=== PATIENT | female | born 1930 | race Caucasian/White ===

== ENCOUNTER 2017-02-22 05:55 | Inpatient (IN) | payer MEDICARE, BC ==
[2017-02-22] VITALS (17 sets, daily range): BP systolic 93–164; BP diastolic 58–96; PULSE 70–128; RESP 16–31; TEMP 97–98.1; O2SAT 93–100
[~2017-02-22] VITALS: Ht 154.9 cm; Wt 45.8 kg
[~2017-02-22 05:55] MED LIST: ATAC32TA PO; CALC12502 PO; LEVO.1 PO
[2017-02-22] MEDS ORDERED: SODIUM CHLORIDE 0.9% FLUSH 10 ML FLUSH IVF PRN (06:15)
[2017-02-22] MEDS ORDERED: RESP: ALBUTEROL 2.5 MG/3 ML NEB (SCH) INH ONE (06:15)
--- NOTE | 2017-02-22 06:15 | PD ---
HPI Chief Complaint: shortness of breath Time Seen by Provider: 06:00 Travel History International Travel<30 days: No Contact w/Intl Traveler<30days: No Traveled to known affect area: No History of Present Illness HPI The patient is a 87-year-old female who presents emergency department for shortness of breath. The patient states she has had intermittent shortness of breath over the last month, however, she awakened approximately 4 AM with significant shortness of breath. According to EMS the patient's O2 saturation on room air was 90% when they arrived. The patient does have a history congestive heart failure, but states she has no history of COPD or pulmonary embolism. She denies being oxygen dependent. The patient states her shortness of breath was constant, improved with O2 via nasal cannula, but did not appear to be affected by lying supine. The patient states she was too tired to get up and ambulate with the shortness of breath started. She denies any chest pain, nausea, vomiting, or abdominal pain. She notes trace edema to left lower extremity, but denies any known history of DVT. The patient does have a history of atrial fibrillation. [facility] Woflf. [facility] Past Medical History Narrative Medical Atrial fibrillation, CHF, hypertension Past Surgical History Narrative Surgical Not contributory Social History Tobacco Use: No Allergies-Medications (Allergen,Severity, Reaction): Coded Allergies: No Known Allergies (Verified , 02/22/17) Reported Meds & Prescriptions Reported Meds & Active Scripts Active Reported Carvedilol 3.125 Mg Tab 3.125 Mg PO BID Eliquis (Apixaban) 2.5 Mg Tab 2.5 Mg PO BID Pravastatin 20 Mg Tab 20 Mg PO DAILY Potassium Chloride ER (Potassium Chloride) 10 Meq Cap 10 Meq PO DAILY Lisinopril 2.5 Mg Tab 2.5 Mg PO DAILY Levothyroxine (Levothyroxine Sodium) 100 Mcg Tab 100 Mcg PO DAILY Lasix (Furosemide) 20 Mg Tab 20 Mg PO DAILY Calcium (Calcium Carbonate) 600 Mg Tab 1 Tab PO DAILY Aspirin 81 (Aspirin) 81 Mg Tabdr 81 Mg PO DAILY Amiodarone (Amiodarone HCl) 200 Mg Tab 200 Mg PO DAILY Review of Systems Except as stated in HPI: all other systems reviewed are Neg General / Constitutional: Positive: Chills, No: Fever HENT: No: Lightheadedness Cardiovascular: Positive: Diaphoresis, No: Chest Pain or Discomfort Respiratory: Positive: Cough, Shortness of Breath Gastrointestinal: No: Nausea, Vomiting, Abdominal Pain Musculoskeletal: Positive: Weakness, Edema (trace edema to left ankle) Physical Exam Narrative GENERAL: Awake, alert, nontoxic-appearing 87-year-old female who appears her stated age and is in mild respiratory distress. SKIN: Focused skin assessment warm, diaphoretic over the backside. HEAD: Atraumatic. Normocephalic. EYES: Pupils equal and round. No scleral icterus. No injection or drainage. ENT: No nasal bleeding or discharge. Mucous membranes pink and moist. NECK: Trachea midline. No JVD. CARDIOVASCULAR: Irregularly irregular with a heart rate in the 90s. RESPIRATORY: Mild tachypnea with a respiratory rate of 22. Crackles in the bases bilaterally. GASTROINTESTINAL: Abdomen soft, non-tender, nondistended. No rebound tenderness. MUSCULOSKELETAL: No obvious deformities. No clubbing. No cyanosis. Trace edema to left lower extremity. NEUROLOGICAL: Awake and alert. No obvious cranial nerve deficits. Motor grossly within normal limits. Normal speech. PSYCHIATRIC: Appropriate mood and affect; insight and judgment normal. Data Data Last Documented VS Vital Signs Date Time Temp Pulse Resp B/P Pulse Ox O2 Delivery O2 Flow Rate FiO2 02/22/17 06:19 97.4 02/22/17 06:10 96 Nasal Cannula 3 02/22/17 06:00 107 20 132/65 Orders Complete Blood Count With Diff (02/22/17 06:10) Comprehensive Metabolic Panel (02/22/17 06:10) B-Type Natriuretic Peptide (02/22/17 06:10) Act Partial Throm Time (Ptt) (02/22/17 06:10) Prothrombin Time / Inr (Pt) (02/22/17 06:10) Magnesium (Mg) (02/22/17 06:10) Ckmb (Isoenzyme) Profile (02/22/17 06:10) Troponin I (02/22/17 06:10) Iv Access Insert/Monitor (02/22/17 06:10) Electrocardiogram (02/22/17 06:10) Ecg Monitoring (02/22/17 06:10) Oximetry (02/22/17 06:10) Oxygen Administration (02/22/17 06:10) Chest, Single Ap (02/22/17 06:10) Sodium Chloride 0.9% Flush (Ns Flush) (02/22/17 06:15) Albuterol Neb (Albuterol Neb) (02/22/17 06:15) [facility] [place] Medical Decision Making Medical Screen Exam Complete: Yes Emergency Medical Condition: Yes Medical Record Reviewed: Yes Interpretation(s) EKG reveals atrial fibrillation with a rate of 93. Intraventricular conduction defect noted with QRS 130 ms. RSR prime V6. No old EKGs to compare. Differential Diagnosis Differential diagnosis includes congestive heart failure, pulmonary edema, pleural effusion, pneumonia, bronchitis, acute coronary syndrome, pulmonary embolism. Narrative Course IV was established, labs are drawn and sent, and the patient was placed on cardiac telemetry monitoring and continuous pulse oximetry monitoring. EKG was ordered and interpreted. Chest x-ray was obtained. The patient was administered one albuterol nebulizer. Chest x-ray reveals bilateral lower lobe airspace disease, therefore, patient was covered for healthcare acquired pneumonia with cefepime 2 g intravenously and Zithromax 500 mg intravenously. The patient was signed out to the oncoming physician at 7 AM with laboratory evaluation pending. The patient will require admission. Condition: Stable Mesfin Huerta MD Feb 22, 2017 06:15
[2017-02-22] MEDS ORDERED: APIX2.5T PO (06:17)
[2017-02-22] MEDS ORDERED: CALC600T25 PO (06:17)
[2017-02-22] MEDS ORDERED: LEVO100T5 PO (06:17)
[2017-02-22] MEDS ORDERED: AMIO200T PO (06:17)
[2017-02-22] MEDS ORDERED: FURO1TAB62 PO (06:17)
[2017-02-22] MEDS ORDERED: ASPI-110 PO (06:17)
[2017-02-22] MEDS ORDERED: POTA10CA PO (06:17)
[2017-02-22] MEDS ORDERED: LISI2.5T3 PO (06:17)
[2017-02-22] MEDS ORDERED: CARV3.12 PO (06:17)
[2017-02-22] MEDS ORDERED: PRAV20TA2 PO (06:17)
[2017-02-22] MEDS ORDERED: CEFEPIME INJ 2,000 MG in SODIUM CHLORIDE 0.9% INJ 100 ML IV ONE (06:45)
[2017-02-22] MEDS ORDERED: AZITHROMYCIN INJ 500 MG in SODIUM CHLOR 0.9% 250 ML INJ 250 ML IV ONE (06:45)
--- NOTE | 2017-02-22 06:52 | RADRPT ---
EXAM DATE/TIME: 02/22/2017 06:27 [place] COMPARISON: No previous studies available for comparison. INDICATIONS : Short of breath. MEDICAL HISTORY : None. SURGICAL HISTORY : None. ENCOUNTER: Initial ACUITY: 1 day PAIN SCORE: 0/10 LOCATION: Bilateral chest FINDINGS: Portable AP view of the chest demonstrates normal-sized cardiac silhouette. There are small bibasilar pleural-parenchymal opacities. No pneumothorax is identified. Bones demonstrate no acute finding. CONCLUSION: Small bilateral pleural effusions with associated airspace consolidation and/or atelectasis. Johann Mc MD on February 22, 2017 at 6:50 Board Certified Radiologist. This report was verified electronically.
[2017-02-22 07:01] LABS: APTT (PATIENT) 31.8 SEC (24.3-30.1); INTERNATIONAL NORMALIZED RATIO 1.2 RATIO; PROTHROMBIN TIME - PATIENT 13.8 SEC (9.8-11.6)
[2017-02-22 07:11] LABS: AUTOMATED NEUTROPHIL # 6.5 TH/MM3 (1.8-7.7); BASOPHIL # 0.1 TH/MM3 (0-0.2); BASOPHIL % 0.7 % (0.0-2.0); EOSINOPHIL % 0.3 % (0.0-4.0); HEMATOCRIT 40.8 % (35.0-46.0); HEMO FLAGS DIFF FINAL; LYMPH % 8.9 % (9.0-44.0); LYMPHOCYTE # 0.7 TH/MM3 (1.0-4.8); MEAN CELL VOLUME 89.9 FL (80.0-100.0); MEAN CORPUSCULAR HGB CONC 32.2 % (32.0-36.0); NEUT % 85.1 % (16.0-70.0); PLATELET COUNT 315 TH/MM3 (150-450); RED BLOOD COUNT 4.53 MIL/MM3 (4.00-5.30); RED CELL DISTRIBUTION WIDTH 15.5 % (11.6-17.2); WHITE BLOOD COUNT 7.6 TH/MM3 (4.0-11.0)
[2017-02-22 07:15] LABS: ANION GAP 11 MEQ/L (5-15); AST (GOT) 55 U/L (15-37); BICARBONATE 24.7 MEQ/L (21.0-32.0); BLOOD UREA NITROGEN 25 MG/DL (7-18); CHLORIDE 96 MEQ/L (98-107); GLOMERULAR FILTRATION RATE 34 ML/MIN (>89); MAGNESIUM 2.1 MG/DL (1.5-2.5); POTASSIUM 4.9 MEQ/L (3.5-5.1); SODIUM (NA) 132 MEQ/L (136-145)
[2017-02-22 07:16] LABS: ALT (GPT) 41 U/L (10-53)
--- NOTE | 2017-02-22 07:17 | PD ---
Physical Exam Date Seen by Provider: Feb 22, 2017 Time Seen by Provider: 07:00 Narrative The patient was signed out to me by Dr. Cory Caldera a changes shift. Please see his H&P for initial visit and physical exam. [facility] of [facility] of [facility]. The patient has a history of atrial fibrillation and is on eliquis. Chest x-ray shows what appears to be interstitial disease with probable infiltrates. She didn't previously given antibiotics by Dr. Huerta for [facility] acquired pneumonia. Laboratory tests are pending at this time. Data Data Last Documented VS Vital Signs Date Time Temp Pulse Resp B/P Pulse Ox O2 Delivery O2 Flow Rate FiO2 02/22/17 09:08 98 109/61 96 02/22/17 07:41 18 Nasal Cannula 2 02/22/17 06:19 97.4 Orders Complete Blood Count With Diff (02/22/17 06:10) Comprehensive Metabolic Panel (02/22/17 06:10) B-Type Natriuretic Peptide (02/22/17 06:10) Act Partial Throm Time (Ptt) (02/22/17 06:10) Prothrombin Time / Inr (Pt) (02/22/17 06:10) Magnesium (Mg) (02/22/17 06:10) Ckmb (Isoenzyme) Profile (02/22/17 06:10) Troponin I (02/22/17 06:10) Iv Access Insert/Monitor (02/22/17 06:10) Electrocardiogram (02/22/17 06:10) Ecg Monitoring (02/22/17 06:10) Oximetry (02/22/17 06:10) Oxygen Administration (02/22/17 06:10) Chest, Single Ap (02/22/17 06:10) Sodium Chloride 0.9% Flush (Ns Flush) (02/22/17 06:15) Albuterol Neb (Albuterol Neb) (02/22/17 06:15) Blood Culture (02/22/17 06:40) Lactic Acid (02/22/17 06:40) Cefepime Inj (Maxipime Inj) (02/22/17 06:45) Azithromycin Inj (Zithromax Inj) (02/22/17 06:45) Ondansetron Inj (Zofran Inj) (02/22/17 08:32) Ondansetron Inj (Zofran Inj) (02/22/17 08:45) Bumetanide Inj (Bumex Inj) (02/22/17 08:45) ^ Infusion (02/22/17 ) Dopamine Inj Premix (Dopamine Inj Premix (02/22/17 09:00) Terbutaline Inj (Brethine Inj) (02/22/17 09:00) Echo 2d Comp With Doppler (02/22/17 ) Admit Order (Ed Use Only) (02/22/17 09:09) Labs Laboratory Tests Test 02/22/17 02/22/17 06:30 06:40 White Blood Count 7.6 TH/MM3 Red Blood Count 4.53 MIL/MM3 Hemoglobin 13.1 GM/DL Hematocrit 40.8 % Mean Corpuscular Volume 89.9 FL Mean Corpuscular Hemoglobin 29.0 PG Mean Corpuscular Hemoglobin 32.2 % Concent Red Cell Distribution Width 15.5 % Platelet Count 315 TH/MM3 Mean Platelet Volume 8.2 FL Neutrophils (%) (Auto) 85.1 % Lymphocytes (%) (Auto) 8.9 % Monocytes (%) (Auto) 5.0 % Eosinophils (%) (Auto) 0.3 % Basophils (%) (Auto) 0.7 % Neutrophils # (Auto) 6.5 TH/MM3 Lymphocytes # (Auto) 0.7 TH/MM3 Monocytes # (Auto) 0.4 TH/MM3 Eosinophils # (Auto) 0.0 TH/MM3 Basophils # (Auto) 0.1 TH/MM3 CBC Comment DIFF FINAL Differential Comment Prothrombin Time 13.8 SEC Prothromb Time International 1.2 RATIO Ratio Activated Partial 31.8 SEC Thromboplast Time Sodium Level 132 MEQ/L Potassium Level 4.9 MEQ/L Chloride Level 96 MEQ/L Carbon Dioxide Level 24.7 MEQ/L Anion Gap 11 MEQ/L Blood Urea Nitrogen 25 MG/DL Creatinine 1.45 MG/DL Estimat Glomerular Filtration 34 ML/MIN Rate Random Glucose 146 MG/DL Calcium Level 8.7 MG/DL Magnesium Level 2.1 MG/DL Total Bilirubin 1.0 MG/DL Aspartate Amino Transf 55 U/L (AST/SGOT) Alanine Aminotransferase 41 U/L (ALT/SGPT) Alkaline Phosphatase 82 U/L Total Creatine Kinase 39 U/L Troponin I 0.02 NG/ML B-Type Natriuretic Peptide 1577 PG/ML Total Protein 6.9 GM/DL Albumin 2.6 GM/DL Lactic Acid Level 2.5 mmol/L [facility] Medical Record Reviewed: Yes Supervised Visit with MIRA: No Narrative Course 87 year old female [facility]. The patient has a history of atrial fibrillation. She is on eliquis. The patient' s white count is elevated at 13.6. Chest x-ray shows congestive heart failure as well as probable underlying infiltrate. She's been started on antibiotics prior to me taking over. She did develop an episode of acute hypotension. We initiated dopamine. She guarded received a dose of Bumex, 1 mg by the. Her blood pressure currently is in the 130s systolic. I did discuss the case with Dr. Mckenna Watters, clerical warehouseman. She requested we get a stat echocardiogram. Echocardiogram has been ordered and is pending. Case was also discussed with Dr. Kurt Russ, on-call embedded hardware engineer, who will evaluate the echocardiogram when it is performed. She'll be admitted to the intensive care unit. Critical Care Narrative Aggregate critical care time was 45 minutes. Time to perform other separately billable procedures was not included in the critical care time. My time did not include minutes spent treating any other patients simultaneously or on activities that did not directly contribute to the patient's treatment. The services I provided to this patient were to treat and/or prevent clinically significant deterioration that could result in: I provided critical care services requiring my management, as noted below: Chart data review, documentation time, medication orders and management, vital sign assessments/reviewing monitor data, ordering and reviewing lab tests, ordering and interpreting/reviewing x-rays and diagnostic studies, care of the patient and discussion of the patient with the admitting physicians. Sepsis Criteria SIRS Criteria (2 or more): Heart rate over 90, WBC > 59500, < 4000 or > 10% bands Sepsis Criteria (SIRS+source): Infect source susp/known Severe Sepsis (+one): Hypotension, Lactate >2, Acute Oliguria/Renal Failure Diagnosis Primary Impression: Pneumonia Additional Impressions: Congestive heart failure Acute kidney injury Hypotension Sepsis Admitting Information Admitting Physician Requests: Admit Condition: Stable Rene Nix MD Feb 22, 2017 07:17
[2017-02-22 07:20] LABS: ALKALINE PHOSPHATASE 82 U/L (45-117)
[2017-02-22 07:25] LABS: CREATINE KINASE 39 U/L (26-192)
[2017-02-22] MEDS ORDERED: ONDANSETRON HCL 4 MG/2 ML VIAL ONE (08:32)
[2017-02-22] MEDS ORDERED: BUMETANIDE INJ 1 MG/4 ML VIAL IV PUSH ONE (08:45)
[2017-02-22] MEDS ORDERED: ONDANSETRON HCL 4 MG/2 ML VIAL IV PUSH ONE (08:45)
[2017-02-22] MEDS ORDERED: DOPamine INJ PREMIX 500 ML IV SCH (09:00)
[2017-02-22] MEDS ORDERED: TERBUTALINE INJ 1 MG/ML AMP SQ PRN (09:00)
--- NOTE | 2017-02-22 10:44 | ECHRPT ---
Indication: Paroxysmal atrial fibrillation CONCLUSIONS Normal left ventricular size. Wall thickness is normal. The left ventricular systolic function is severely reduced with an estimated ejection fraction in th e range of 25-30%. There is diffuse global hypokinesis. The left atrial size is slightly dilated. The right atrial size is mildly dilated. Mitral annular calcification is present. [id number] mitral valve regurgitation. Aortic valve sclerosis is present. Mild aortic valve regurgitation. There is moderate tricuspid regurgitation. The pulmonary valve is not well visualized. The inferior vena cava is mildly dilated. There is a trivial pericardial effusion present. A moderate left sided pleural effusion is noted. BP: / HR: Rhythm: Atrial fibrillation Technical Quality:Good FINDINGS LEFT VENTRICLE Normal left ventricular size. Wall thickness is normal. The left ventricular systolic function is severely reduced with an estimated ejection fraction in th e range of 25-30%. There is diffuse global hypokinesis. RIGHT VENTRICLE Normal right ventricular size and systolic function. LEFT ATRIUM The left atrial size is slightly dilated. RIGHT ATRIUM The right atrial size is mildly dilated. ATRIAL SEPTUM Normal atrial septal thickness without atrial level shunting by limited color doppler interrogation. AORTA The aortic root and proximal ascending aorta are normal in size on limited imaging. MITRAL VALVE Mitral annular calcification is present. Jugywtlw-fm-kvshra mitral valve regurgitation. AORTIC VALVE Aortic valve sclerosis is present. Mild aortic valve regurgitation. TRICUSPID VALVE There is moderate tricuspid regurgitation. PULMONARY VALVE The pulmonary valve is not well visualized. VESSELS The inferior vena cava is mildly dilated. PERICARDIUM There is a trivial pericardial effusion present. A moderate left sided pleural effusion is noted. Kurt Russ MD (Electronically Signed) Final Date:22 February 2017 10:44
[2017-02-22] MEDS ORDERED: POTASSIUM CHLORIDE 25 MEQ EFFERVESCENT TAB PO PRN (11:00)
[2017-02-22] MEDS ORDERED: ONDANSETRON HCL 4 MG/2 ML VIAL IV PRN (11:00)
[2017-02-22] MEDS ORDERED: ACETAMINOPHEN 325 MG TAB PO PRN (11:00)
[2017-02-22] MEDS ORDERED: MAGNESIUM SULFATE INJ 2 GM in SODIUM CHLORIDE 0.9% INJ 96 ML IV PRN (11:00)
[2017-02-22] MEDS ORDERED: RESP: ALBUTEROL 2.5 MG/IPRATROPIUM 0.5 MG NEB (PRN) INH (11:00)
[2017-02-22] MEDS ORDERED: LACTULOSE SYRUP 20 GM/30 ML CUP PO PRN (11:00)
[2017-02-22] MEDS ORDERED: MISCELLANEOUS NURSING INFORMATION XX SCH (11:00)
[2017-02-22] MEDS ORDERED: POTASSIUM PHOSPHATE MONOBASIC 500 MG TAB PO/TUBE PRN (11:00)
[2017-02-22] MEDS ORDERED: BISACODYL 10 MG SUPP RECTAL PRN (11:00)
[2017-02-22] MEDS ORDERED: SODIUM CHLORIDE 0.9% FLUSH 10 ML FLUSH IV FLUSH PRN (11:00)
[2017-02-22] MEDS ORDERED: MAGNESIUM HYDROXIDE SUSP 30 ML CUP PO PRN (11:00)
[2017-02-22] MEDS ORDERED: POTASSIUM PHOSPHATE INJ 30 MMOL in SODIUM CHLOR 0.9% 250 ML INJ 250 ML IV PRN (11:00)
[2017-02-22] MEDS ORDERED: SODIUM PHOSPHATE INJ 30 MMOL in SODIUM CHLOR 0.9% 250 ML INJ 240 ML IV PRN (11:00)
[2017-02-22] MEDS ORDERED: CHLORHEXIDINE GLUCONATE 2 % 1 PACK (2 CLOTHS) TOP PRN (11:00)
[2017-02-22] MEDS ORDERED: POTASSIUM PHOSPHATE MONOBASIC 500 MG TAB PO PRN (11:00)
[2017-02-22] MEDS ORDERED: MAGNESIUM SULFATE INJ 4 GM in SODIUM CHLORIDE 0.9% INJ 92 ML IV PRN (11:00)
[2017-02-22] MEDS ORDERED: SENNOSIDES 8.6 MG TAB PO PRN (11:00)
[2017-02-22] MEDS ORDERED: MAGNESIUM OXIDE 400 MG TAB PO PRN (11:00)
[2017-02-22] MEDS ORDERED: POTASSIUM CHLOR 40 MEQ PREMIX 100 ML IV PRN ×2 (11:00)
[2017-02-22] MEDS ORDERED: POTASSIUM CHLOR 20 MEQ PREMIX 100 ML IV PRN ×2 (11:00)
--- NOTE | 2017-02-22 11:17 | HHI.HP ---
[facility] Service Critical Care Medicine Primary Care Physician Salvatore Reddy MD Admission Diagnosis chf, pneumonia, hypotension, Diagnosis: Travel History International Travel<30 Days: No Contact w/Intl Traveler <30 Da: No Traveled to Known Affected Are: No Sepsis Criteria SIRS Criteria (2 or more): Heart rate over 90 Severe Sepsis (+one): Hypotension, Lactate >2 Multiple Organ Dysfunction Syn: Evidence -2 organs failing History of Present Illness The patient is a 87-year-old female who presented to the ED for shortness of breath. Per report, the patient states she has had intermittent shortness of breath over the last month, however, she awakened approximately 4 AM with significant shortness of breath. Per EMS upon arrival, the patient's O2 saturation on room air was 90%. The patient has history congestive heart failure, but states she has no history of COPD or pulmonary embolism. The patient states her shortness of breath was constant, improved with O2 via nasal cannula, but did not appear to be affected by lying supine. The patient states she was too tired to get up and ambulate with the shortness of breath started. She denies any chest pain, nausea, vomiting, or abdominal pain. She notes trace edema to left lower extremity, but denies any known history of DVT. The patient does have a history of atrial fibrillation. The patient's physician of record at the skilled nursing is Dr. Wolff. The patient has been followed by a evp operations at [facility], the symptomatology was reported to begin December 2016. At which point the patient was placed on amiodarone, carvedilol, other medications. Of note upon transfer to [facility] amiodarone PO was discontinued, but she remained on carvedilol and Eliquiss. The patient presented to the ED with a heart rate in the 120s, hypotensive, a BNP greater than 1100. Bumex was given, and sepsis protocol was initiated. A stat echo was performed which showed diffuse hypokinesis with an ejection fraction of 2530 % and moderate to severe mitral regurgitation. The patient was noted to have a moderate left pleural effusion. Critical care medicine was consulted for treatment and management. Upon arrival to the ED the patient was noted to be on dopamine infusion blood pressure by cup on left lower extremity 120/80 HR 120's to 140's . History PFSH Past Medical History Narrative Medical Atrial fibrillation, CHF, hypertension Past Surgical History Narrative Surgical Not contributory Social History Tobacco Use: No Allergies-Medications Allergies-Medications (Allergen,Severity, Reaction): Coded Allergies: No Known Allergies (Verified , 02/22/17) Reported Meds & Prescriptions Reported Meds & Active Scripts Active Reported Carvedilol 3.125 Mg Tab 3.125 Mg PO BID Eliquis (Apixaban) 2.5 Mg Tab 2.5 Mg PO BID Pravastatin 20 Mg Tab 20 Mg PO DAILY Potassium Chloride ER (Potassium Chloride) 10 Meq Cap 10 Meq PO DAILY Lisinopril 2.5 Mg Tab 2.5 Mg PO DAILY Levothyroxine (Levothyroxine Sodium) 100 Mcg Tab 100 Mcg PO DAILY Lasix (Furosemide) 20 Mg Tab 20 Mg PO DAILY Calcium (Calcium Carbonate) 600 Mg Tab 1 Tab PO DAILY Aspirin 81 (Aspirin) 81 Mg Tabdr 81 Mg PO DAILY Amiodarone (Amiodarone HCl) 200 Mg Tab 200 Mg PO DAILY ROS Review of Systems Except as stated in HPI: all other systems reviewed are Neg General / Constitutional: Positive: Chills, No: Fever HENT: No: Lightheadedness Cardiovascular: Positive: Diaphoresis, No: Chest Pain or Discomfort Respiratory: Positive: Cough, Shortness of Breath Gastrointestinal: No: Nausea, Vomiting, Abdominal Pain Musculoskeletal: Positive: Weakness, Edema (trace edema to left ankle) Past Family Social History Allergies: Coded Allergies: No Known Allergies (Verified , 02/22/17) Physical Exam Vital Signs Vital Signs Date Time Temp Pulse Resp B/P Pulse Ox O2 Delivery O2 Flow Rate FiO2 02/22/17 09:38 104 18 121/75 94 4 02/22/17 09:08 98 109/61 96 02/22/17 08:59 97 130/92 97 02/22/17 07:41 93 18 108/70 96 Nasal Cannula 2 02/22/17 07:41 96 18 108/70 96 Nasal Cannula 2 02/22/17 06:19 97.4 02/22/17 06:10 96 Nasal Cannula 3 02/22/17 06:00 107 20 132/65 96 Laboratory Laboratory Tests Test 02/22/17 02/22/17 06:30 06:40 White Blood Count 7.6 Red Blood Count 4.53 Hemoglobin 13.1 Hematocrit 40.8 Mean Corpuscular Volume 89.9 Mean Corpuscular Hemoglobin 29.0 Mean Corpuscular Hemoglobin 32.2 Concent Red Cell Distribution Width 15.5 Platelet Count 315 Mean Platelet Volume 8.2 Neutrophils (%) (Auto) 85.1 Lymphocytes (%) (Auto) 8.9 Monocytes (%) (Auto) 5.0 Eosinophils (%) (Auto) 0.3 Basophils (%) (Auto) 0.7 Neutrophils # (Auto) 6.5 Lymphocytes # (Auto) 0.7 Monocytes # (Auto) 0.4 Eosinophils # (Auto) 0.0 Basophils # (Auto) 0.1 CBC Comment DIFF FINAL Differential Comment Prothrombin Time 13.8 Prothromb Time International 1.2 Ratio Activated Partial 31.8 Thromboplast Time Sodium Level 132 Potassium Level 4.9 Chloride Level 96 Carbon Dioxide Level 24.7 Anion Gap 11 Blood Urea Nitrogen 25 Creatinine 1.45 Estimat Glomerular Filtration 34 Rate Random Glucose 146 Calcium Level 8.7 Magnesium Level 2.1 Total Bilirubin 1.0 Aspartate Amino Transf 55 (AST/SGOT) Alanine Aminotransferase 41 (ALT/SGPT) Alkaline Phosphatase 82 Total Creatine Kinase 39 Troponin I 0.02 B-Type Natriuretic Peptide 1577 Total Protein 6.9 Albumin 2.6 Lactic Acid Level 2.5 Date/Time Procedure Status Source Growth 02/22/17 06:50 Aerobic Blood Culture Received Blood Peripheral Pending 02/22/17 06:50 Anaerobic Blood Culture Received Blood Peripheral Pending Result Diagram: 02/22/1730 02/22/17 0630 Imaging Last Impressions Chest X-Ray 02/22/17 0610 Signed Impressions: Service Date/Time: January 06:27 - CONCLUSION: Small bilateral pleural effusions with associated airspace consolidation and/or atelectasis. Johann Mc MD Septic Shock Reassessment Peripheral Pulses: Weak Right Radial Weak Left Radial Weak Right Dorsalis Pedis Weak Left Dorsalis Pedis Capillary Refill: Brisk Assessment and Plan Assessment and Plan Assessment Congestive heart failure Presumed multilobular pneumonia- hospital-acquired Mitral regurgitation Sepsis Respiratory insufficiency Plan Plan by systems: Neurologic: -GCS 15 -Avoid sedatives -Tylenol 650 mg every 6 hours when necessary for pain Respiratory: -02/22chest x-ray small bilateral bibasilar opacities -02/22Per ECHO moderate left pleural effusion -Consult IR for thoracentesis -O2 via nasal cannula -Bronchodilators every 4 hours PRN for wheezing Cardiovascular: -Telemetry atrial fibrillation with RVR -Currently on dopamine in ED, BNP 1577, troponin 0.02 - Begin amiodarone -Stat echodiffuse global hypokinesis, EF 2530 percent, moderate left pleural effusion, mild aortic regurgitation, moderate tricuspid regurgitation, moderate to severe mitral regurgitation -Continue home med carvedilol -Cardiology consulted appreciate recommendations Renal: -Insert schaeffer -- Strict I/Os FEN/GI: -Clear liquid diet -Gentle hydration normal saline 42/cc/hour -Zofran for nausea -Protonix GI prophylaxis Heme/ID: -Follow-up blood urine and sputum cultures -Obtain Legionella, influenza and pneumococcal cultures -Patient received cefepime and azithromycin in the ED -Continue empiric antibiotics Zosyn and azithromycin -Monitor CBC Endocrine: -Glucose monitoring per ICU protocol, low dose regimen -- SSI Prophylaxis: GI Prophylaxis Zofran DVT Prophylaxis -- SCDs Heparin 5000 twice a day Lines: Peripheral IV's2 . Central line if indicated Dispo: my billing statement This patient remains critically ill with one or more organ systems which are or may become a threat to life. I have spent in excess of 39 minutes discontinuously in the care and management of this patient. This time is exclusive of procedures, and includes, but is not limited to, evaluation of the patient, review of the medical record, discussions with family, consultants, nursing staff, or respiratory therapy, and documentation in the medical record. Code Status Full Discussed Condition With Patient's daughter and , ED ICU and Mckenna Ace MD Feb 22, 2017 11:17
[2017-02-22] MEDS: SODIUM CHLOR 0.9% 1000 ML INJ 1,000 ML IV SCH ×3 (12:24→12:46)
[2017-02-22] MEDS: PANTOPRAZOLE SODIUM 40 MG VIAL IV SCH (12:24)
--- NOTE | 2017-02-22 12:42 | EKG ---
Date Performed: 02/22/2017 Time Performed: 06:22:43 PTAGE: 87 years EKG: ATRIAL FIBRILLATION MARKED LEFT AXIS DEVIATION ANTEROSEPTAL MYOCARDIAL INFARCTION ABNORMAL ECG NO PREVIOUS TRACING DOCTOR: Lawson Sweet Interpretating Date/Time 02/22/2017 12:40:04
[2017-02-22] MEDS: PIPERACIL-TAZO 3.375 GM PREMIX 50 ML IV SCH ×3 (12:45→23:02)
--- NOTE | 2017-02-22 12:55 | MB ---
cc: KATHYA BENITEZ M.D. DATE OF CONSULTATION 02/22/2017 REASON FOR CONSULTATION Congestive heart failure. CHIEF COMPLAINT Shortness of breath. HISTORY OF PRESENT ILLNESS Gabriele Parisi is an 87-year-old woman admitted with hypotension and congestive heart failure. I got some of the history from the chart, from the patient and also from the daughter. In talking to the daughter, the patient has been hospitalized four times with congestive heart failure since Father's Day. She has seen Dr. Lg Schneider at [facility] but only in the hospital, not in his office. She comes in now with several days' complaints of increasing shortness of breath. In the ER she deteriorated and had to be placed on dopamine for blood pressure support. She says she is breathing a little better since she has been admitted. Echo has already been done showing severe cardiomyopathy. The patient denies any chest pain that I can elicit, denies syncope. She is frail, weighing less than 100 pounds and has been residing in a residential. She has a previous history of atrial fibrillation and CHF. She does not smoke cigarettes. MEDICATIONS Her medications prior to admission include - 1. Carvedilol 3.125 p.o. b.i.d. 2. Eliquis 2.5 p.o. b.i.d. 3. Pravastatin 20 mg. 4. Potassium 10 mEq daily. 5. Lisinopril 2.5 mg daily. 6. Levothyroxine 100 mcg daily. 7. Lasix 20 mg p.o. daily. 8. Calcium. 9. Aspirin 81 mg. 10. Amiodarone 200 mg daily. PAST MEDICAL HISTORY Notable for the diagnoses already listed. PAST SURGICAL HISTORY Noncontributory. FAMILY HISTORY Noncontributory. REVIEW OF SYSTEMS She has not had any bleeding. She has had generalized weakness. Remaining review of systems is negative. PHYSICAL EXAMINATION GENERAL: A thin elderly white female, mildly tachypneic. She is alert. VITAL SIGNS: Charted. HEENT EXAM: Unremarkable. NECK: Mildly increased central venous pressure. CHEST: Absent breath sounds at the bases with few rales. CARDIAC: Exam shows normal first and second heart sounds. There is an S3 gallop and a 2/6 mitral regurgitation murmur. ABDOMEN: Soft. EXTREMITIES: 1+ edema. Pedal pulses are diminished. CHEST X-RAY Showing bilateral effusions and CHF. Echo Doppler study interpreted as an LV ejection fraction of 25%, global hypokinesis, biatrial enlargement, moderate to severe mitral regurgitation and moderate tricuspid regurgitation. LABORATORY Elevated BNP of 1577, BUN is 25, creatinine 1.45. Potassium 4.9. Lactic acid is elevated at 2.5. IMPRESSION Acute on chronic systolic CHF, very poor functional status, very poor LV function. Prognosis is poor. RECOMMENDATIONS I talked with the daughter about code status. She needs to talk to the rest of the family. Hospice may be appropriate. The plan right now is for thoracentesis to help with her breathing. We will try to minimize the use of dopamine because it is going to run her heart rate up. Will continue to try to gently diurese her which is difficult in the setting of low blood pressure. I will follow her with you in the hospital. MD MARTHA Conner/SHRUTI /12:21 PM /12:30 PM
[2017-02-22 13:59] LABS: INTERNATIONAL NORMALIZED RATIO 1.3 RATIO
--- NOTE | 2017-02-22 15:02 | RADRPT ---
EXAM DATE/TIME: 02/22/2017 14:41 [facility] COMPARISON: CHEST SINGLE AP, February 22, 2017, 6:27. INDICATIONS : Post thoracentesis. MEDICAL HISTORY : Chronic obstructive pulmonary disease. Congestive heart failure. Afib. SURGICAL HISTORY : None. ENCOUNTER: Subsequent ACUITY: 1 day PAIN SCORE: 0/10 LOCATION: Left chest FINDINGS: Near-complete resolution of left-sided pleural effusion following thoracentesis. No definite pneumoth orax. Small to moderate sized right pleural effusion with associated right lower lobe airspace diseas e. Cardiac mediastinal contours are stable. Remainder of the exam is unchanged. CONCLUSION: 1. Interval resolution of left-sided pleural effusion following thoracentesis without significant pne umothorax. Tahir Dietrich MD on February 22, 2017 at 14:58 Board Certified Radiologist. This report was verified electronically.
--- NOTE | 2017-02-22 15:02 | RADRPT ---
EXAM DATE/TIME: 02/22/2017 13:41 [facility] COMPARISON: No previous studies available for comparison. INDICATIONS : Left pleural effusion. MEDICAL HISTORY : Congestive heart failure. Chronic obstructive pulmonary disease. Afib. Ischemic cardiomyopathy. SURGICAL HISTORY : None. ENCOUNTER: Initial ACUITY: 1 week PAIN SCORE: 0/10 LOCATION: Left chest FLUID: Total volume of 600 cc of clear, red fluid was removed. Fluid was sent to lab for ordered studies. TECHNIQUE: 1. Ultrasound guidance for thoracentesis. 2. Thoracentesis. The risks, benefits, and alternatives to ultrasound guided thoracentesis were explained to the patien t in lay simple terms, including the risk of bleeding and infection. Written and verbal informed con sent was obtained. Appropriate area for thoracentesis was marked under ultrasound guidance with the patient in the uprig ht position. Overlying skin was prepped and draped in the usual sterile fashion and with local anest hetic, a dermatotomy was made with an 11 blade scalpel. A 6 Armenian thoracentesis catheter was placed in the pleural space and fluid was removed. Catheter was then removed and a sterile dressing applie d. There were no immediate complications. The patient tolerated the procedure well and the left the ultrasound suite in stable condition. Chest radiograph is to be obtained. CONCLUSION: Uncomplicated ultrasound guided thoracentesis. Orville Asencio MD on February 22, 2017 at 15:00 Board Certified Radiologist. This report was verified electronically.
[2017-02-22 16:22] LABS: TOTAL PROTEIN,PLEURAL FLUID 2.4 GM/DL
[2017-02-22 16:50] LABS: PLEURAL FLUID LYMPHS 27 %
--- NOTE | 2017-02-22 17:10 | RADRPT ---
EXAM DATE/TIME: 02/22/2017 16:35 [facility] COMPARISON: CHEST SINGLE AP, February 22, 2017, 6:27. INDICATIONS : Pneumothorax. MEDICAL HISTORY : Chronic obstructive pulmonary disease. Congestive heart failure. Afib. SURGICAL HISTORY : None. ENCOUNTER: Subsequent ACUITY: 1 day PAIN SCORE: 0/10 LOCATION: Left chest FINDINGS: There is interval development of a tiny left apical pneumothorax measuring 8 mm. A small right pleur al effusion is stable. The heart is mildly enlarged. Bibasilar patchiness is noted consistent with a telectasis and/or infiltrate. CONCLUSION: 1. Interval development of tiny left apical pneumothorax measuring 8 mm. 2. Small right pleural effusion. 3. Cardiomegaly. 4. Bibasilar patchiness consistent with atelectasis and/or infiltrate. Blanco Cruz MD on February 22, 2017 at 17:03 Board Certified Radiologist. This report was verified electronically.
[2017-02-22 19:28] LABS: MAGNESIUM 2.2 MG/DL (1.5-2.5)
[2017-02-22] MEDS: SODIUM CHLORIDE 0.9% FLUSH 10 ML FLUSH IV FLUSH SCH (21:33)
[2017-02-22] MEDS: DOCUSATE SODIUM 50 MG/SENNA 8.6 MG TAB PO SCH (21:33)
[2017-02-22] MEDS: HEPARIN SODIUM - SQ 10,000 UNITS/ML VIAL SQ SCH (21:34)
[2017-02-23] VITALS (12 sets, daily range): BP systolic 91–112; BP diastolic 50–70; PULSE 73–99; RESP 16–46; TEMP 97.2–98.3; O2SAT 89–100
[2017-02-23] MEDS: CHLORHEXIDINE GLUCONATE 2 % 1 PACK (2 CLOTHS) TOP SCH (04:00)
[2017-02-23] MEDS: AZITHROMYCIN INJ 500 MG in SODIUM CHLOR 0.9% 250 ML INJ 250 ML IV SCH (05:00)
[2017-02-23] MEDS: PIPERACIL-TAZO 3.375 GM PREMIX 50 ML IV SCH ×3 (05:00→17:22)
[2017-02-23 06:09] LABS: AUTOMATED NEUTROPHIL # 8.9 TH/MM3 (1.8-7.7); BASOPHIL # 0.1 TH/MM3 (0-0.2); EOSINOPHIL % 0.2 % (0.0-4.0); HEMATOCRIT 34.9 % (35.0-46.0); HEMO FLAGS DIFF FINAL; LYMPH % 6.6 % (9.0-44.0); LYMPHOCYTE # 0.7 TH/MM3 (1.0-4.8); MEAN CELL VOLUME 89.1 FL (80.0-100.0); MEAN CORPUSCULAR HEMOGLOBIN 28.9 PG (27.0-34.0); MEAN CORPUSCULAR HGB CONC 32.5 % (32.0-36.0); MONO % 6.8 % (0.0-8.0); NEUT % 85.4 % (16.0-70.0); PLATELET COUNT 274 TH/MM3 (150-450); RED BLOOD COUNT 3.91 MIL/MM3 (4.00-5.30); RED CELL DISTRIBUTION WIDTH 15.7 % (11.6-17.2); WHITE BLOOD COUNT 10.5 TH/MM3 (4.0-11.0)
[2017-02-23 07:07] LABS: ALKALINE PHOSPHATASE 103 U/L (45-117); ALT (GPT) 64 U/L (10-53); ANION GAP 13 MEQ/L (5-15); AST (GOT) 70 U/L (15-37); BICARBONATE 21.7 MEQ/L (21.0-32.0); BLOOD UREA NITROGEN 28 MG/DL (7-18); CHLORIDE 101 MEQ/L (98-107); GLOMERULAR FILTRATION RATE 43 ML/MIN (>89); MAGNESIUM 1.9 MG/DL (1.5-2.5); POTASSIUM 3.6 MEQ/L (3.5-5.1); SODIUM (NA) 136 MEQ/L (136-145); TOTAL BILIRUBIN ADULT 0.7 MG/DL (0.2-1.0)
[2017-02-23] MEDS: PANTOPRAZOLE SODIUM 40 MG VIAL IV SCH (09:49)
[2017-02-23] MEDS: SODIUM CHLORIDE 0.9% FLUSH 10 ML FLUSH IV FLUSH SCH ×2 (09:49→21:17)
[2017-02-23] MEDS: DOCUSATE SODIUM 50 MG/SENNA 8.6 MG TAB PO SCH ×2 (09:49→21:16)
[2017-02-23] MEDS: HEPARIN SODIUM - SQ 10,000 UNITS/ML VIAL SQ SCH ×2 (09:49→21:17)
[2017-02-23] MEDS: SODIUM CHLOR 0.9% 1000 ML INJ 1,000 ML IV SCH (10:41)
--- NOTE | 2017-02-23 15:28 | HHI.CCPN ---
Subjective Remarks/Hospital Course The patient is a 87-year-old female who presented to the ED for shortness of breath. Per report, the patient states she has had intermittent shortness of breath over the last month, however, she awakened approximately 4 AM with significant shortness of breath. Per EMS upon arrival, the patient's O2 saturation on room air was 90%. The patient has history congestive heart failure, but states she has no history of COPD or pulmonary embolism. The patient states her shortness of breath was constant, improved with O2 via nasal cannula, but did not appear to be affected by lying supine. The patient states she was too tired to get up and ambulate with the shortness of breath started. She denies any chest pain, nausea, vomiting, or abdominal pain. She notes trace edema to left lower extremity, but denies any known history of DVT. The patient does have a history of atrial fibrillation. The patient's physician of record at the half-way is Dr. Wolff. The patient has been followed by a commissary worker at [facility], the symptomatology was reported to begin December 2016. At which point the patient was placed on amiodarone, carvedilol, other medications. Of note upon transfer to [facility] amiodarone PO was discontinued, but she remained on carvedilol and Eliquiss. The patient presented to the ED with a heart rate in the 120s, hypotensive, a BNP greater than 1100. Bumex was given, and sepsis protocol was initiated. A stat echo was performed which showed diffuse hypokinesis with an ejection fraction of 2530 % and moderate to severe mitral regurgitation. The patient was noted to have a moderate left pleural effusion. Critical care medicine was consulted for treatment and management. Upon arrival to the ED the patient was noted to be on dopamine infusion blood pressure by cup on left lower extremity 120/80 HR 120's to 140's . Subjective: 02/23: No acute issues overnight. The patient underwent left thoracentesis for pleural effusion with approximately 600 cc withdrawn, cultures pending. Cardiology was consulted, appreciate recommendations. Patient was weaned off of dopamine status post thoracentesis yesterday afternoon. Patient is tolerating diet appetite improved. Resolution of respiratory distress. Objective Vital Signs Date Time Temp Pulse Resp B/P Pulse Ox O2 Delivery O2 Flow Rate FiO2 02/23/17 14:00 97 02/23/17 12:00 98.3 39 97/58 96 02/22/17 21:25 Nasal Cannula 3.00 Intake and Output 02/22/17 02/22/17 02/22/17 07:59 15:59 23:59 Intake Total 1112 ml Output Total 775 ml Balance 337 ml Result Diagram: 02/23/17 0507 02/23/17 0507 Imaging Last Impressions Chest X-Ray 02/22/17 0610 Signed Impressions: Service Date/Time: January 06:27 - CONCLUSION: Small bilateral pleural effusions with associated airspace consolidation and/or atelectasis. Johann Mc MD Objective Remarks GENERAL: Well-developed elderly female, was easily conversant in no apparent distress SKIN: Warm and dry. HEAD: Atraumatic. Normocephalic. EYES: Pupils equal and round. No scleral icterus. No injection or drainage. ENT: No nasal bleeding or discharge. Mucous membranes pink and moist. NECK: Trachea midline. No JVD. CARDIOVASCULAR: Normal rate, irregularrhythm. RESPIRATORY: No accessory muscle use. Clear to auscultation. Breath sounds equal bilaterally. GASTROINTESTINAL: Abdomen soft, non-tender, nondistended. No guarding. MUSCULOSKELETAL: Extremities without clubbing, cyanosis, or edema. No obvious deformities. NEUROLOGICAL: Awake and alert. RASS 0. No gross focal/sensory deficits. Follows commands in all 4 extremities. Procedures 02/23 thoracentesis A/P Assessment and Plan Assessment Congestive heart failure Presumed multilobular pneumonia- hospital-acquired Mitral regurgitation Sepsis Respiratory insufficiency-resolved Moderate left pleural effusion-resolved Plan Plan by systems: Neurologic: -GCS 15 -Avoid sedatives -Tylenol 650 mg every 6 hours when necessary for pain Respiratory: -02/22chest x-ray small bilateral bibasilar opacities -02/22Per ECHO moderate left pleural effusion -02/22 IR for thoracentesis-600 cc (left) -O2 via nasal cannula -Bronchodilators every 4 hours PRN for wheezing Cardiovascular: -Telemetry atrial fibrillation with RVR - Begin amiodarone -Stat echodiffuse global hypokinesis, EF 2530% moderate left pleural effusion , mild aortic regurgitation, moderate tricuspid regurgitation, moderate to severe mitral regurgitation -Continue home med carvedilol -Cardiology consulted appreciate recommendations Renal: -D/C schaeffer -- Strict I/Os FEN/GI: -Heart healthy diet with boost supplement -D/C normal saline 42/cc/hour -Zofran for nausea -Protonix GI prophylaxis -Bowel regimen Heme/ID: -Follow-up blood urine and sputum cultures -Obtain Legionella, influenza and pneumococcal cultures -Patient received cefepime and azithromycin in the ED -Continue empiric antibiotics Zosyn and azithromycin -Monitor CBC Endocrine: -Glucose monitoring per ICU protocol, low dose regimen -- SSI Msk: PT evaluation and treat Prophylaxis: GI Prophylaxis Zofran DVT Prophylaxis -- SCDs Heparin 5000 twice a day Lines: Peripheral IV's2 . Central line if indicated Dispo: Level 2 Plan transfer to [place] hospitalist, plan transfer to floor with telemetry. Telephoned daughter and Mr. Parisi updated them on patient's medical status, all questions answered Physician Mckenna Jimenes MD Feb 23, 2017 15:28
--- NOTE | 2017-02-23 17:45 | HHI.PR ---
Addendum to Inpatient Note Additional Information Dr. Schneider is her hassock maker. I have spoken to him and he will F/U and I am signed off. Kurt Russ MD Feb 23, 2017 17:45
--- NOTE | 2017-02-23 18:18 | PD.CARD.PN ---
Subjective Subjective Remarks Eating dinner, denies CP or SOB, feels well, has no idea why she is here Objective Medications Current Medications Medications (Trade) Dose Ordered Sig/Bertin Route Start Time Stop Time Status Last Admin (DOPamine INJ PREMIX) 500 ml @ 4.86 mls/hr TITRATE IV 02/22/17 09:00 02/22/17 09:07 (Brethine Inj) 1 mg UNSCH PRN SQ 02/22/17 09:00 (NS Flush) 2 ml UNSCH PRN IV FLUSH 02/22/17 11:00 (NS Flush) 2 ml BID IV FLUSH 02/22/17 21:00 02/23/17 09:49 (Tylenol) 650 mg Q6H PRN PO 02/22/17 11:00 (Protonix Inj) 40 mg DAILY IV 02/22/17 11:00 02/23/17 09:49 (Zofran Inj) 4 mg Q6H PRN IV 02/22/17 11:00 Miscellaneous Information 1 Q361D XX 02/22/17 11:00 02/22/17 13:15 (Chlorhexidine 2% Cloth) 3 pack Taper DAILY@04 TOP 02/23/17 04:00 02/19/18 03:59 02/23/17 04:00 (Chlorhexidine 2% Cloth) 3 pack UNSCH PRN TOP 02/22/17 11:00 (Kasey-Colace) 1 tab BID PO 02/22/17 21:00 02/23/17 09:49 (Milk Of Magnesia Liq) 30 ml Q12H PRN PO 02/22/17 11:00 (Senokot) 17.2 mg Q12H PRN PO 02/22/17 11:00 (Dulcolax Supp) 10 mg DAILY PRN RECTAL 02/22/17 11:00 Lactulose 30 ml 30 ml DAILY PRN PO 02/22/17 11:00 Piperacillin Sod/ Tazobactam Sod 50 ml @ 100 mls/hr Q6H IV 02/22/17 12:00 02/23/17 17:22 (Zithromax Inj/ NS 250 ml Inj) 250 ml @ 250 mls/hr Q24H IV 02/23/17 06:00 02/23/17 05:00 (Heparin Inj) 5,000 units Q12HR SQ 02/22/17 21:00 02/23/17 09:49 Vital Signs / I&O Vital Signs Date Time Temp Pulse Resp B/P Pulse Ox O2 Delivery O2 Flow Rate FiO2 02/23/17 16:00 98.1 96 26 105/65 93 02/23/17 16:00 92 02/23/17 14:00 97 02/23/17 12:00 97 02/23/17 12:00 98.3 97 39 97/58 96 02/23/17 10:00 95 02/23/17 08:15 95 02/23/17 08:00 98.2 94 42 112/59 89 02/23/17 08:00 99 02/23/17 06:00 95 02/23/17 04:00 90 02/23/17 04:00 98.1 90 28 94/62 100 02/23/17 02:00 90 02/23/17 00:00 98.0 93 46 91/50 98 02/23/17 00:00 97 02/22/17 22:00 93 02/22/17 21:25 97 Nasal Cannula 3.00 02/22/17 20:00 95 02/22/17 20:00 98.0 95 31 104/61 100 I/O 02/22/17 02/22/17 02/22/17 02/23/17 02/23/17 02/23/17 07:00 15:00 23:00 07:00 15:00 23:00 Intake Total 1112 ml 298 ml 900 ml Output Total 775 ml 175 ml 250 ml Balance 337 ml 123 ml 650 ml Intake Oral 480 ml 400 ml IV Total 632 ml 298 ml 500 ml Output Urine Total 775 ml 175 ml 250 ml Physical Exam GENERAL: In NAD, eating dinner SKIN: Warm and dry. HEAD: Normocephalic. EYES: No scleral icterus. No injection or drainage. NECK: Supple, trachea midline. No JVD or lymphadenopathy. CARDIOVASCULAR: Regular rate and rhythm, 2/6 syst murmur at apex, S3 gallop. RESPIRATORY: Breath sounds equal bilaterally. No accessory muscle use. GASTROINTESTINAL: Abdomen soft, non-tender, nondistended. MUSCULOSKELETAL: No cyanosis, trace edema. Laboratory Laboratory Tests Test 02/22/17 02/23/17 18:44 05:07 Phosphorus Level 5.0 MG/DL 4.2 MG/DL Magnesium Level 2.2 MG/DL 1.9 MG/DL Troponin I 0.02 NG/ML White Blood Count 10.5 TH/MM3 Red Blood Count 3.91 MIL/MM3 Hemoglobin 11.3 GM/DL Hematocrit 34.9 % Mean Corpuscular Volume 89.1 FL Mean Corpuscular Hemoglobin 28.9 PG Mean Corpuscular Hemoglobin 32.5 % Concent Red Cell Distribution Width 15.7 % Platelet Count 274 TH/MM3 Mean Platelet Volume 8.3 FL Neutrophils (%) (Auto) 85.4 % Lymphocytes (%) (Auto) 6.6 % Monocytes (%) (Auto) 6.8 % Eosinophils (%) (Auto) 0.2 % Basophils (%) (Auto) 1.0 % Neutrophils # (Auto) 8.9 TH/MM3 Lymphocytes # (Auto) 0.7 TH/MM3 Monocytes # (Auto) 0.7 TH/MM3 Eosinophils # (Auto) 0.0 TH/MM3 Basophils # (Auto) 0.1 TH/MM3 CBC Comment DIFF FINAL Differential Comment Sodium Level 136 MEQ/L Potassium Level 3.6 MEQ/L Chloride Level 101 MEQ/L Carbon Dioxide Level 21.7 MEQ/L Anion Gap 13 MEQ/L Blood Urea Nitrogen 28 MG/DL Creatinine 1.19 MG/DL Estimat Glomerular Filtration 43 ML/MIN Rate Random Glucose 79 MG/DL Calcium Level 7.6 MG/DL Total Bilirubin 0.7 MG/DL Aspartate Amino Transf 70 U/L (AST/SGOT) Alanine Aminotransferase 64 U/L (ALT/SGPT) Alkaline Phosphatase 103 U/L Total Protein 5.7 GM/DL Albumin 2.0 GM/DL Imaging Last Impressions Chest X-Ray 02/22/17 1700 Signed Impressions: Service Date/Time: January 16:35 - CONCLUSION: 1. Interval development of tiny left apical pneumothorax measuring 8 mm. 2. Small right pleural effusion. 3. Cardiomegaly. 4. Bibasilar patchiness consistent with atelectasis and/or infiltrate. Blanco Cruz MD Thoracentesis Ultrasound 02/22/17 0000 Signed Impressions: Service Date/Time: January 13:41 - CONCLUSION: Uncomplicated ultrasound guided thoracentesis. Orville Asencio MD Assessment and Plan Problem List: (1) Congestive heart failure (2) Hypotension (3) Cardiomyopathy (4) Mitral regurgitation (5) Tricuspid regurgitation Assessment and Plan Continue ICU care. Wean dopamine as tolerated. Gentle diuresis closely monitoring renal function. Overall prognosis is poor. Recommend to consider palliative care and hospice. Keny Sellers MD Feb 23, 2017 18:18
[2017-02-24] VITALS (10 sets, daily range): BP systolic 102–148; BP diastolic 66–76; PULSE 62–159; RESP 16–20; TEMP 97.4–97.9; O2SAT 94–98
[2017-02-24] MEDS: PIPERACIL-TAZO 3.375 GM PREMIX 50 ML IV SCH ×4 (00:43→18:26)
[2017-02-24] MEDS: CHLORHEXIDINE GLUCONATE 2 % 1 PACK (2 CLOTHS) TOP SCH (03:21)
[2017-02-24] MEDS: AZITHROMYCIN INJ 500 MG in SODIUM CHLOR 0.9% 250 ML INJ 250 ML IV SCH (05:49)
[2017-02-24] MEDS: PANTOPRAZOLE SODIUM 40 MG VIAL IV SCH (09:28)
[2017-02-24] MEDS: DOCUSATE SODIUM 50 MG/SENNA 8.6 MG TAB PO SCH ×2 (09:29→23:00)
[2017-02-24] MEDS: HEPARIN SODIUM - SQ 10,000 UNITS/ML VIAL SQ SCH (09:29)
[2017-02-24] MEDS: SODIUM CHLORIDE 0.9% FLUSH 10 ML FLUSH IV FLUSH SCH ×2 (09:31→23:00)
[2017-02-24] MEDS: POTASSIUM CHLORIDE 10 MEQ CONTROLLED RELEASE TAB PO SCH (23:00)
[2017-02-24] MEDS: CARVEDILOL 3.125 MG TAB PO SCH (23:00)
[2017-02-24] MEDS: APIXABAN 2.5 MG TABLET PO SCH (23:00)
[2017-02-25] VITALS (8 sets, daily range): BP systolic 107–131; BP diastolic 70–91; PULSE 62–128; RESP 17–18; TEMP 97.2–98.4; O2SAT 95–98
[2017-02-25] MEDS: PIPERACIL-TAZO 3.375 GM PREMIX 50 ML IV SCH ×5 (00:06→23:36)
[2017-02-25] MEDS ORDERED: AMIODARONE INJ 450 MG in D5W (EXCEL BAG) 241 ML IV SCH (00:15)
[2017-02-25] MEDS: CHLORHEXIDINE GLUCONATE 2 % 1 PACK (2 CLOTHS) TOP SCH (03:51)
[2017-02-25] MEDS: AZITHROMYCIN INJ 500 MG in SODIUM CHLOR 0.9% 250 ML INJ 250 ML IV SCH (05:18)
[2017-02-25 08:17] LABS: BICARBONATE 24.1 MEQ/L (21.0-32.0); POTASSIUM 3.6 MEQ/L (3.5-5.1)
[2017-02-25] MEDS: PANTOPRAZOLE SODIUM 40 MG VIAL IV SCH (08:52)
[2017-02-25] MEDS: CARVEDILOL 3.125 MG TAB PO SCH ×2 (08:52→17:05)
[2017-02-25] MEDS: FUROSEMIDE 20 MG TAB PO SCH (08:52)
[2017-02-25] MEDS: APIXABAN 2.5 MG TABLET PO SCH ×2 (08:52→21:59)
[2017-02-25] MEDS: POTASSIUM CHLORIDE 10 MEQ CONTROLLED RELEASE TAB PO SCH ×2 (08:52→21:59)
[2017-02-25] MEDS: SODIUM CHLORIDE 0.9% FLUSH 10 ML FLUSH IV FLUSH SCH ×2 (08:52→21:00)
[2017-02-25] MEDS: DOCUSATE SODIUM 50 MG/SENNA 8.6 MG TAB PO SCH ×2 (08:54→21:59)
[2017-02-25] MEDS: AMIODARONE 200 MG TAB PO SCH (17:05)
[2017-02-25] MEDS: ENALAPRIL MALEATE 2.5 MG TAB PO SCH (18:54)
[2017-02-26] VITALS (12 sets, daily range): BP systolic 121–162; BP diastolic 54–97; PULSE 54–135; RESP 18–24; TEMP 93.7–98.6; O2SAT 93–100
[2017-02-26] MEDS: CHLORHEXIDINE GLUCONATE 2 % 1 PACK (2 CLOTHS) TOP SCH (03:06)
[2017-02-26] MEDS: PIPERACIL-TAZO 3.375 GM PREMIX 50 ML IV SCH (05:06)
[2017-02-26] MEDS: AZITHROMYCIN INJ 500 MG in SODIUM CHLOR 0.9% 250 ML INJ 250 ML IV SCH (05:07)
[2017-02-26 07:52] LABS: BLOOD GAS BASE EXCESS -7.3 mmol/L (-2-2); BLOOD GAS CARBOXYHEMOGLOBIN 1.1 % (0-4); BLOOD GAS HCO3 16 mmol/L (22-26); BLOOD GAS METHEMOGLOBIN 0.6 % (0-2); BLOOD GAS O2 HGB SATURATION 98 % (90-100); BLOOD GAS OXYGEN CONTENT 18.3 Vol % (12.0-20.0); BLOOD GAS PCO2 21 mmHg (38-42); BLOOD GAS PO2 186 mmHg (61-120); BLOOD GAS TOTAL HGB 13.1 G/DL (12.0-16.0); TEMP CORR TO 98.6
[2017-02-26 07:53] LABS: CRITICAL VALUE YES
[2017-02-26 07:54] LABS: DRAW SITE RT RADIAL; LITER FLOW 8 L/M; NUMBER OF ARTERIAL PUNCTURES 1; OXYGEN DEVICE AEROSOL TX; STAT YES; ULNAR PULSE PRESENT
[2017-02-26] MEDS ORDERED: methylPREDNISolone SOD SUCC 125 MG/2 ML VIAL IV PUSH ONE (08:00)
[2017-02-26] MEDS ORDERED: FUROSEMIDE 40 MG/4 ML VIAL ONE (08:18)
--- NOTE | 2017-02-26 08:49 | HHI.FPPN ---
Addendum to progress note ADDENDUM Reason for addendum: Additonal documentation Additional information S: Drs Berta and Sophia responded to [facility] at 0725 hours on 02/26 to room 1415 where an 87 YO female with CHF w/EF 20-25% and PNA was de-satting into the 70s. O: Vital Signs Date Time Temp Pulse Resp B/P Pulse Ox O2 Delivery O2 Flow Rate FiO2 02/26/17 07:46 100 Non-Rebreather 15.00 02/26/17 07:46 100 15.00 02/26/17 04:00 Room Air 02/26/17 04:00 97.4 112 18 128/82 96 02/26/17 00:00 97.3 54 18 129/76 98 02/25/17 22:00 Room Air 02/25/17 21:38 98 21 02/25/17 20:00 97.2 65 18 117/70 96 02/25/17 20:00 94 02/25/17 16:00 97.8 62 18 107/85 98 02/25/17 12:00 97.4 100 17 110/78 98 Physical Exam: GEN: thin and frail woman gasping for breath and moaning HEENT: NCAT CV: irregular rate and rhythm with 2/6 mitral regurgitation murmur CHEST: Increased WOB with accessory muscle use on 10L mask Last Impressions Chest X-Ray 02/22/17 1700 Signed Impressions: Service Date/Time: January 16:35 - CONCLUSION: 1. Interval development of tiny left apical pneumothorax measuring 8 mm. 2. Small right pleural effusion. 3. Cardiomegaly. 4. Bibasilar patchiness consistent with atelectasis and/or infiltrate. Blanco Cruz MD Thoracentesis Ultrasound 02/22/17 0000 Signed Impressions: Service Date/Time: January 13:41 - CONCLUSION: Uncomplicated ultrasound guided thoracentesis. Orville Asencio MD CXR - 02/26 - Bilateral infiltrate R > L suspect for PNA, pulmonary edema and pleural effusion A/P: 87 YO female with CHF EF 25%, PNA, pleural effusion (est 600 cc) and pulmonary edema with hypoxemia and acute respiratory failure with O2 sats in the 70s on 10L mask. - CXR - ABG - Lasix 40 mg IV - Troponins, BMP, CBC - Solumedrol 125 mg IV - Move to CVICU - Consult plaster helper - BiPAP sdw Dr Hampton and Remington Meraz MD R1 Feb 26, 2017 08:48
--- NOTE | 2017-02-26 08:53 | RADRPT ---
EXAM DATE/TIME: 02/26/2017 07:59 [facility] COMPARISON: CHEST SINGLE AP, February 22, 2017, 16:35. INDICATIONS : Short of breath. Respiratory distress. MEDICAL HISTORY : Chronic obstructive pulmonary disease. Congestive heart failure. Atrial fibrilation. Ischemic ca rdiomyopathy. SURGICAL HISTORY : Thoracentesis. ENCOUNTER: Initial ACUITY: 3 days PAIN SCORE: Non-responsive. LOCATION: Bilateral chest FINDINGS: Portable AP view of the chest demonstrates cardiac silhouette size at the upper limits for normal. Th ere are perihilar and lower lung zone interstitial opacities bilaterally with bibasilar pleural-paren chymal opacities. No pneumothorax is visualized. Bones demonstrate no acute finding. CONCLUSION: 1. Moderate-sized bibasilar opacities representing pleural effusions with associated volume loss and or airspace consolidation. A left pleural effusion has increased in size while the right pleural effu alan is stable. 2. Perihilar changes characteristic of pulmonary edema. Johann Mc MD on February 26, 2017 at 8:51 Board Certified Radiologist. This report was verified electronically.
[2017-02-26] MEDS: DOCUSATE SODIUM 50 MG/SENNA 8.6 MG TAB PO SCH ×2 (09:00→20:41)
[2017-02-26] MEDS: FUROSEMIDE 20 MG TAB PO SCH (09:00)
[2017-02-26] MEDS: POTASSIUM CHLORIDE 10 MEQ CONTROLLED RELEASE TAB PO SCH ×2 (09:50→20:41)
[2017-02-26] MEDS: AMIODARONE 200 MG TAB PO SCH (09:50)
[2017-02-26] MEDS: CARVEDILOL 3.125 MG TAB PO SCH ×2 (09:50→20:41)
[2017-02-26] MEDS: SODIUM CHLORIDE 0.9% FLUSH 10 ML FLUSH IV FLUSH SCH ×2 (09:51→20:41)
[2017-02-26] MEDS: PANTOPRAZOLE SODIUM 40 MG VIAL IV SCH (09:51)
--- NOTE | 2017-02-26 10:09 | HHI.CCPN ---
Subjective Remarks/Hospital Course The patient is a 87-year-old female who presented to the ED for shortness of breath. Per report, the patient states she has had intermittent shortness of breath over the last month, however, she awakened approximately 4 AM with significant shortness of breath. Per EMS upon arrival, the patient's O2 saturation on room air was 90%. The patient has history congestive heart failure, but states she has no history of COPD or pulmonary embolism. The patient states her shortness of breath was constant, improved with O2 via nasal cannula, but did not appear to be affected by lying supine. The patient states she was too tired to get up and ambulate with the shortness of breath started. She denies any chest pain, nausea, vomiting, or abdominal pain. She notes trace edema to left lower extremity, but denies any known history of DVT. The patient does have a history of atrial fibrillation. The patient's physician of record at the long term is Dr. Wolff. The patient has been followed by a supervisor dumping at [facility], the symptomatology was reported to begin December 2016. At which point the patient was placed on amiodarone, carvedilol, other medications. Of note upon transfer to [facility] amiodarone PO was discontinued, but she remained on carvedilol and Eliquiss. The patient presented to the ED with a heart rate in the 120s, hypotensive, a BNP greater than 1100. Bumex was given, and sepsis protocol was initiated. A stat echo was performed which showed diffuse hypokinesis with an ejection fraction of 2530 % and moderate to severe mitral regurgitation. The patient was noted to have a moderate left pleural effusion. Critical care medicine was consulted for treatment and management. Upon arrival to the ED the patient was noted to be on dopamine infusion blood pressure by cup on left lower extremity 120/80 HR 120's to 140's . Subjective: 02/23: No acute issues overnight. The patient underwent left thoracentesis for pleural effusion with approximately 600 cc withdrawn, cultures pending. Cardiology was consulted, appreciate recommendations. Patient was weaned off of dopamine status post thoracentesis yesterday afternoon. Patient is tolerating diet appetite improved. Resolution of respiratory distress. 02/26: Patient had been transferred to the floor on 02/23. Today rapid response team was called for worsening shortness of breath and patient was noted to have low O2 sats and borderline blood pressure. She was placed on a nonrebreather facemask given to 50 cc of normal saline bolus and transferred to the ICU with reconsult for critical care medicine service. I saw the patient immediately on arrival to the ICU. At that time she was on a nonrebreather facemask and was maintaining her O2 sats around 98%. She was not using accessory muscles of respiration however her pulmonary exam was consistent with fluid overload/CHF. Chest x-ray done on the floor prior to transfer revealed bilateral pleural effusions, pulmonary edema. Lasix 40 mg IV stat was ordered. History was obtained by reviewing records and discussion with family medicine residents who accompanied patient to the ICU. Patient had been followed by cardiology during this admission and they had recommended palliative care/hospice evaluation in view of her advanced cardiomyopathy and severe mitral and tricuspid regurgitation on 2-D echo. Objective Vital Signs Date Time Temp Pulse Resp B/P Pulse Ox O2 Delivery O2 Flow Rate FiO2 02/26/17 08:48 98 Simple Mask 8.00 02/26/17 04:00 97.4 112 18 128/82 02/25/17 21:38 21 Intake and Output 02/25/17 02/25/17 02/26/17 08:00 16:00 00:00 Intake Total 240 ml 380 ml 240 ml Output Total 0 ml Balance 240 ml 380 ml 240 ml Result Diagram: 02/23/17 0507 02/25/17 0536 Other Results Laboratory Tests Test 02/26/17 07:36 Blood Gas Puncture Site RT RADIAL Blood Gas Patient Temperature 98.6 Blood Gas HCO3 16 mmol/L (22-26) Blood Gas Base Excess -7.3 mmol/L (-2-2) Blood Gas Oxygen Saturation 98 % (90-100) Arterial Blood pH 7.48 (7.380-7.420) Arterial Blood Partial 21 mmHg (38-42) Pressure CO2 Arterial Blood Partial 186 mmHg Pressure O2 (61-120) Arterial Blood Oxygen Content 18.3 Vol % (12.0-20.0) Arterial Blood 1.1 % (0-4) Carboxyhemoglobin Arterial Blood Methemoglobin 0.6 % (0-2) Blood Gas Hemoglobin 13.1 G/DL (12.0-16.0) Oxygen Delivery Device AEROSOL TX Blood Gas Liter Flow 8 L/M Imaging Last Impressions Chest X-Ray 02/22/17 0610 Signed Impressions: Service Date/Time: January 06:27 - CONCLUSION: Small bilateral pleural effusions with associated airspace consolidation and/or atelectasis. Johann Mc MD Objective Remarks GENERAL: Well-developed elderly female, laying in ICU bed on 8 L O2 via facemask with some tachypnea, not using accessory muscles of respirations currently. SKIN: Warm and dry. HEAD: Atraumatic. Normocephalic. EYES: Pupils equal and round. No scleral icterus. No injection or drainage. ENT: No nasal bleeding or discharge. Mucous membranes pink and moist. NECK: Trachea midline. No JVD. CARDIOVASCULAR: Normal rate, irregular rhythm. RESPIRATORY: No accessory muscle use. Air entry decreased bilaterally at bases , scattered rhonchi and crackles bilaterally more at bases. GASTROINTESTINAL: Abdomen soft, non-tender, nondistended. No guarding. MUSCULOSKELETAL: Extremities without clubbing, cyanosis, or edema. No obvious deformities. NEUROLOGICAL: Drowsy, easily arousable, disoriented, moves all 4 extremities. Not following commands, tries to keep taking her face mask off. Procedures 02/23 thoracentesis A/P Assessment and Plan Assessment Decompensated acute on chronic systolic Congestive heart failure Possible pneumonia though no leukocytosis or fever currently Mitral regurgitation Acute respiratory failure Bilateral pleural effusion A. fib Dilated cardiomyopathy Severe mitral regurgitation Severe tricuspid regurgitation Plan Plan by systems: Neurologic: -Follow neuro status -Avoid sedatives -Tylenol 650 mg every 6 hours when necessary for pain Respiratory: -02/22chest x-ray small bilateral bibasilar opacities -02/22Per ECHO moderate left pleural effusion -02/22 IR for thoracentesis-600 cc (left) -O2 via nasal cannula, diurese with Lasix. May require BiPAP. Family does not want intubation. -Bronchodilators every 4 hours PRN for wheezing Cardiovascular - Continue amiodarone - echodiffuse global hypokinesis, EF 2530% moderate left pleural effusion, mild aortic regurgitation, moderate tricuspid regurgitation, moderate to severe mitral regurgitation -Continue carvedilol, enalapril -On Lasix 20 mg by mouth daily. Given 40 mg Lasix IV stat on arrival to the ICU with 80 mg IV ordered for 11:30 AM to mobilize fluid -Cardiology consulted appreciate recommendations. Noted recommendation to consider palliative care/hospice. Renal: -Arauz catheterization for accurate intake output in ICU patient receiving diuretics - Diurese with Lasix -- Strict I/Os, monitor and replete electro lites, follow BUN/creatinine. FEN/GI: -Heart healthy diet with boost supplement -Zofran for nausea -Protonix GI prophylaxis -Bowel regimen Heme/ID: -blood urine and sputum cultures negative -Obtain Legionella, influenza and pneumococcal cultures -Patient received cefepime and azithromycin in the ED -Continue empiric antibiotic - azithromycin, Zosyn stopped on 02/26 in view of worsening CHF and high sodium load with Zosyn and low suspicion for pneumonia -Monitor CBC Endocrine: -Glucose monitoring per ICU protocol, low dose regimen -- SSI Msk: PT evaluation and treat Prophylaxis: GI Prophylaxis Zofran DVT Prophylaxis -- SCDs Heparin 5000 twice a day Lines: Peripheral IV's2 . Central line if indicated Telephoned daughter : Miesha Parisi and discussed current clinical status including possibly need for intubation and she was very clear that she and her father would not want any aggressive measures including intubation or CPR and wish to change her CODE STATUS to DNR status. I also asked her if she wanted any further invasive procedures and she was also very clear about not wanting any further invasive procedures at this time. I did discuss option of palliative care and hospice evaluation in view of her advanced cardiomyopathy and valvular disease and she wished to discuss with palliative care service further to assist with deciding goals of therapy. CODE STATUS changed to DNR status at this time per discussion with patient's daughter. Condition remains critical with patient being very high risk for deterioration from advanced cardiomyopathy and decompensated CHF. Time spent on critical care excluding procedures 45 minutes Lawson Cortez MD Feb 26, 2017 10:09
[2017-02-26] MEDS: ENALAPRIL MALEATE 2.5 MG TAB PO SCH (11:16)
[2017-02-26] MEDS: APIXABAN 2.5 MG TABLET PO SCH ×2 (11:16→20:41)
[2017-02-26] MEDS: POTASSIUM CHLOR 20 MEQ PREMIX 100 ML IV SCH ×2 (11:17→17:42)
[2017-02-26] MEDS ORDERED: FUROSEMIDE 100 MG/10 ML VIAL IV PUSH ONE (11:30)
[2017-02-26 11:52] LABS: BASOPHIL % 0.3 % (0.0-2.0); EOSINOPHIL % 0.1 % (0.0-4.0); HEMATOCRIT 39.6 % (35.0-46.0); HEMO FLAGS DIFF FINAL; LYMPH % 4.3 % (9.0-44.0); LYMPHOCYTE # 0.4 TH/MM3 (1.0-4.8); MEAN CELL VOLUME 90.4 FL (80.0-100.0); MEAN CORPUSCULAR HEMOGLOBIN 28.8 PG (27.0-34.0); MEAN CORPUSCULAR HGB CONC 31.9 % (32.0-36.0); MONO % 2.8 % (0.0-8.0); NEUT % 92.5 % (16.0-70.0); PLATELET COUNT 320 TH/MM3 (150-450); RED BLOOD COUNT 4.38 MIL/MM3 (4.00-5.30); RED CELL DISTRIBUTION WIDTH 15.6 % (11.6-17.2); WHITE BLOOD COUNT 9.7 TH/MM3 (4.0-11.0)
[2017-02-26 12:08] LABS: ANION GAP 12 MEQ/L (5-15); BICARBONATE 29.5 MEQ/L (21.0-32.0); BLOOD UREA NITROGEN 20 MG/DL (7-18); CHLORIDE 98 MEQ/L (98-107); GLOMERULAR FILTRATION RATE 41 ML/MIN (>89); POTASSIUM 3.2 MEQ/L (3.5-5.1); SODIUM (NA) 139 MEQ/L (136-145)
--- NOTE | 2017-02-26 16:14 | PD.CARD.PN ---
Subjective Subjective Remarks Episode of severe dyspnea this AM, transferred to the ICU, now feels better and has no recollection of the event, family present Objective Medications Current Medications Medications (Trade) Dose Ordered Sig/Bertin Route Start Time Stop Time Status Last Admin (DOPamine INJ PREMIX) 500 ml @ 4.86 mls/hr TITRATE IV 02/22/17 09:00 02/22/17 09:07 (Brethine Inj) 1 mg UNSCH PRN SQ 02/22/17 09:00 (NS Flush) 2 ml UNSCH PRN IV FLUSH 02/22/17 11:00 (NS Flush) 2 ml BID IV FLUSH 02/22/17 21:00 02/26/17 09:51 (Tylenol) 650 mg Q6H PRN PO 02/22/17 11:00 (Protonix Inj) 40 mg DAILY IV 02/22/17 11:00 02/26/17 09:51 (Zofran Inj) 4 mg Q6H PRN IV 02/22/17 11:00 Miscellaneous Information 1 [id number] XX 02/22/17 11:00 02/22/17 13:15 (Chlorhexidine 2% Cloth) 3 pack Taper DAILY@04 TOP 02/23/17 04:00 02/19/18 03:59 02/23/17 04:00 (Chlorhexidine 2% Cloth) 3 pack UNSCH PRN TOP 02/22/17 11:00 (Kasey-Colace) 1 tab BID PO 02/22/17 21:00 02/25/17 21:59 (Milk Of Magnesia Liq) 30 ml Q12H PRN PO 02/22/17 11:00 (Senokot) 17.2 mg Q12H PRN PO 02/22/17 11:00 (Dulcolax Supp) 10 mg DAILY PRN RECTAL 02/22/17 11:00 Lactulose 30 ml 30 ml DAILY PRN PO 02/22/17 11:00 (Zithromax Inj/ NS 250 ml Inj) 250 ml @ 250 mls/hr Q24H IV 02/23/17 06:00 02/26/17 05:07 (Eliquis) 2.5 mg BID PO 02/24/17 21:00 02/26/17 11:16 (KCl) 10 meq BID PO 02/24/17 21:00 02/26/17 09:50 (Coreg) 3.125 mg BID PO 02/24/17 21:00 02/26/17 09:50 (Lasix) 20 mg DAILY PO 02/25/17 09:00 02/25/17 08:52 (Cordarone) 200 mg DAILY PO 02/25/17 18:00 02/26/17 09:50 (Vasotec) 2.5 mg DAILY PO 02/25/17 18:00 02/26/17 11:16 (KCl Powder) 40 meq ONCE ONCE PO 02/26/17 17:00 02/26/17 17:01 Vital Signs / I&O Vital Signs Date Time Temp Pulse Resp B/P Pulse Ox O2 Delivery O2 Flow Rate FiO2 02/26/17 12:00 99 Nasal Cannula 2.00 02/26/17 11:22 98 Nasal Cannula 4.00 02/26/17 11:00 99 Nasal Cannula 4.00 02/26/17 11:00 98.4 88 20 121/66 99 02/26/17 11:00 90 02/26/17 10:00 97 Nasal Cannula 4.00 02/26/17 09:30 97.7 02/26/17 09:30 98 Nasal Cannula 5.00 02/26/17 08:48 98 Simple Mask 8.00 02/26/17 08:45 97 Non-Rebreather 8.00 02/26/17 08:23 93.7 114 24 162/97 93 02/26/17 08:23 93 Non-Rebreather 10.00 02/26/17 08:19 100 02/26/17 07:46 100 Non-Rebreather 15.00 02/26/17 07:46 100 15.00 02/26/17 04:00 Room Air 02/26/17 04:00 97.4 112 18 128/82 96 02/26/17 00:00 97.3 54 18 129/76 98 02/25/17 22:00 Room Air 02/25/17 21:38 98 21 02/25/17 20:00 97.2 65 18 117/70 96 02/25/17 20:00 94 I/O 02/25/17 02/25/17 02/25/17 02/26/17 02/26/17 02/26/17 07:00 15:00 23:00 07:00 15:00 23:00 Intake Total 510 ml 380 ml 240 ml 437 ml Output Total 0 ml Balance 510 ml 380 ml 240 ml 437 ml Intake Oral 240 ml 380 ml 240 ml IV Total 270 ml 437 ml Output Urine Total 0 ml # Voids 4 2 # Bowel Movements 0 1 1 Physical Exam GENERAL: In NAD SKIN: Warm and dry. HEAD: Normocephalic. EYES: No scleral icterus. No injection or drainage. NECK: Supple, trachea midline. No JVD or lymphadenopathy. CARDIOVASCULAR: Regular rate and rhythm, 2/6 syst murmur at apex, S3 gallop. RESPIRATORY: Breath sounds equal bilaterally. No accessory muscle use. GASTROINTESTINAL: Abdomen soft, non-tender, nondistended. MUSCULOSKELETAL: No cyanosis, trace edema. Laboratory Laboratory Tests Test 02/26/17 02/26/17 02/26/17 07:36 11:24 11:25 Blood Gas Puncture Site RT RADIAL Blood Gas Patient Temperature 98.6 Blood Gas HCO3 16 mmol/L Blood Gas Base Excess -7.3 mmol/L Blood Gas Oxygen Saturation 98 % Arterial Blood pH 7.48 Arterial Blood Partial 21 mmHg Pressure CO2 Arterial Blood Partial 186 mmHg Pressure O2 Arterial Blood Oxygen Content 18.3 Vol % Arterial Blood 1.1 % Carboxyhemoglobin Arterial Blood Methemoglobin 0.6 % Blood Gas Hemoglobin 13.1 G/DL Oxygen Delivery Device AEROSOL TX Blood Gas Liter Flow 8 L/M Sodium Level 139 MEQ/L Potassium Level 3.2 MEQ/L Chloride Level 98 MEQ/L Carbon Dioxide Level 29.5 MEQ/L Anion Gap 12 MEQ/L Blood Urea Nitrogen 20 MG/DL Creatinine 1.24 MG/DL Estimat Glomerular Filtration 41 ML/MIN Rate Random Glucose 121 MG/DL Calcium Level 8.2 MG/DL Troponin I LESS THAN 0.02 NG/ML White Blood Count 9.7 TH/MM3 Red Blood Count 4.38 MIL/MM3 Hemoglobin 12.6 GM/DL Hematocrit 39.6 % Mean Corpuscular Volume 90.4 FL Mean Corpuscular Hemoglobin 28.8 PG Mean Corpuscular Hemoglobin 31.9 % Concent Red Cell Distribution Width 15.6 % Platelet Count 320 TH/MM3 Mean Platelet Volume 8.0 FL Neutrophils (%) (Auto) 92.5 % Lymphocytes (%) (Auto) 4.3 % Monocytes (%) (Auto) 2.8 % Eosinophils (%) (Auto) 0.1 % Basophils (%) (Auto) 0.3 % Neutrophils # (Auto) 9.0 TH/MM3 Lymphocytes # (Auto) 0.4 TH/MM3 Monocytes # (Auto) 0.3 TH/MM3 Eosinophils # (Auto) 0.0 TH/MM3 Basophils # (Auto) 0.0 TH/MM3 CBC Comment DIFF FINAL Differential Comment Imaging Last Impressions Chest X-Ray 02/26/17 0000 Signed Impressions: Service Date/Time: Sunday, February 26, 2017 07:59 - CONCLUSION: 1. Moderate- sized bibasilar opacities representing pleural effusions with associated volume loss and or airspace consolidation. A left pleural effusion has increased in size while the right pleural effusion is stable. 2. Perihilar changes characteristic of pulmonary edema. Johann Mc MD Thoracentesis Ultrasound 02/22/17 0000 Signed Impressions: Service Date/Time: January 13:41 - CONCLUSION: Uncomplicated ultrasound guided thoracentesis. Orville Asencio MD Assessment and Plan Problem List: (1) Congestive heart failure (2) Hypotension (3) Cardiomyopathy (4) Mitral regurgitation (5) Tricuspid regurgitation Assessment and Plan Episode of pulmonary edema this AM. Now stabilized, but prognosis very poor. Recommend comfort care. Seen by palliative care service. D/w pt's family, they understand the situation. Problem Qualifiers (1) Congestive heart failure: Keny Sellers MD Feb 26, 2017 16:14
[2017-02-26] MEDS ORDERED: POTASSIUM CHLORIDE 20 MEQ PWD PACKET PO ONE (17:00)
--- NOTE | 2017-02-26 17:05 | PD.CONS ---
Consult Service Palliative Care . Consult Requested By Dr. Ronald Cortez . Primary Care Physician Salvatore Reddy MD . Reason for Consultation a. To assist with evaluation and management of symptoms including: pain, weakness, dyspnea. b. To assist medical decision maker(s) with: better understanding of current medical conditions; weighing benefits/burdens of medical treatment options; making medical treatment decisions. . HPI History of Present Illness Mrs. Parisi is an 87-year-old female with past medical history of congestive heart failure, hypertension, ischemic cardiomyopathy, atrial fibrillation, high cholesterol and hypothyroidism. Patient has had for acute care hospitalizations since Father's 2016. She was previously admitted to [facility] and discharged on 02/18/17 to [facility] rehab. Patient presented to [facility] emergency department on 02/22/17 from [facility] for evaluation of shortness of breath. Notes indicate patient awakened at 4 AM with shortness of breath, upon EMS arrival patient's oxygen saturation was 90% on room air. Echocardiogram revealed EF 25 30% with moderate to severe mitral and tricuspid regurgitation. Chest x-ray revealed moderate left pleural effusion. Heart rate 120s 140s. Patient underwent left thoracentesis on 02/23/17. Cardiology was consulted who recommended comfort measures with hospice support given advanced cardiomyopathy and severe mitral and tricuspid regurgitation. On 02/26/17 rapid response team was called for worsening shortness of breath, hypoxemia and borderline blood pressure. Patient was transferred to ICU. She was placed on a nonrebreather mask with O2 sats around 98%. Physical exam was consistent with fluid overload/CHF. Chest x-ray done revealed bilateral pleural effusions, pulmonary edema. Lasix 40 mg IV was ordered. Patient remains in ICU. Family elected NO CODE status. Palliative care is consulted to assist with further clarification of treatment goals. Patient seen and examined in ICU. No family at bedside. Patient is confused, she believes she's in [place]. Called to speak with patient's daughter via telephone, she reports after speaking with Dr. Cortez earlier today family has elected to transition to comfort focused care with hospice support. . Function/Cognitive Trajectory Patient has had 5 acute care hospitalizations since December 2016. She has been dependent for her care. She's had significant weight loss. Family does not feel they will be able to care for her at home. She remains confused. Decreased appetite. . Review of Systems ROS Limitations: Altered Mental Status (confused) Constitutional: COMPLAINS OF: Fatigue, Change in appetite (decreased), Generalized weakness Respiratory: COMPLAINS OF: Shortness of breath Cardiovascular: COMPLAINS OF: Chest pain, Dyspnea on Exertion Hematologic/Lymphatics: COMPLAINS OF: Bruising Neurologic: COMPLAINS OF: Poor Balance Psychiatric: COMPLAINS OF: Anxiety, Confusion Past Family Social History Coded Allergies: No Known Allergies (Verified , 02/22/17) Past Medical History Ischemic cardiomyopathy Congestive heart failure Hypertension Atrial fibrillation Hypothyroidism hyperlipidemia . Past Surgical History Unknown. . Reported Medications Reported Meds & Active Scripts Active Reported Carvedilol 3.125 Mg Tab 3.125 Mg PO BID Eliquis (Apixaban) 2.5 Mg Tab 2.5 Mg PO BID Pravastatin 20 Mg Tab 20 Mg PO DAILY Potassium Chloride ER (Potassium Chloride) 10 Meq Cap 10 Meq PO DAILY Lisinopril 2.5 Mg Tab 2.5 Mg PO DAILY Levothyroxine (Levothyroxine Sodium) 100 Mcg Tab 100 Mcg PO DAILY Lasix (Furosemide) 20 Mg Tab 20 Mg PO DAILY Calcium (Calcium Carbonate) 600 Mg Tab 1 Tab PO DAILY Aspirin 81 (Aspirin) 81 Mg Tabdr 81 Mg PO DAILY Amiodarone (Amiodarone HCl) 200 Mg Tab 200 Mg PO DAILY . Current Medications Medications (Trade) Dose Ordered Sig/Bertin Route Start Time Stop Time Status Last Admin (DOPamine INJ PREMIX) 500 ml @ 4.86 mls/hr TITRATE IV 02/22/17 09:00 02/22/17 09:07 (Brethine Inj) 1 mg UNSCH PRN SQ 02/22/17 09:00 (NS Flush) 2 ml UNSCH PRN IV FLUSH 02/22/17 11:00 (NS Flush) 2 ml BID IV FLUSH 02/22/17 21:00 02/26/17 09:51 (Tylenol) 650 mg Q6H PRN PO 02/22/17 11:00 (Protonix Inj) 40 mg DAILY IV 02/22/17 11:00 02/26/17 09:51 (Zofran Inj) 4 mg Q6H PRN IV 02/22/17 11:00 Miscellaneous Information 1 Q361D XX 02/22/17 11:00 02/22/17 13:15 (Chlorhexidine 2% Cloth) 3 pack Taper DAILY@04 TOP 02/23/17 04:00 02/19/18 03:59 02/23/17 04:00 (Chlorhexidine 2% Cloth) 3 pack UNSCH PRN TOP 02/22/17 11:00 (Kasey-Colace) 1 tab BID PO 02/22/17 21:00 02/25/17 21:59 (Milk Of Magnesia Liq) 30 ml Q12H PRN PO 02/22/17 11:00 (Senokot) 17.2 mg Q12H PRN PO 02/22/17 11:00 (Dulcolax Supp) 10 mg DAILY PRN RECTAL 02/22/17 11:00 Lactulose 30 ml 30 ml DAILY PRN PO 02/22/17 11:00 (Zithromax Inj/ NS 250 ml Inj) 250 ml @ 250 mls/hr Q24H IV 02/23/17 06:00 02/26/17 05:07 (Eliquis) 2.5 mg BID PO 02/24/17 21:00 02/26/17 11:16 (KCl) 10 meq BID PO 02/24/17 21:00 02/26/17 09:50 (Coreg) 3.125 mg BID PO 02/24/17 21:00 02/26/17 09:50 (Lasix) 20 mg DAILY PO 02/25/17 09:00 02/25/17 08:52 (Cordarone) 200 mg DAILY PO 02/25/17 18:00 02/26/17 09:50 (Vasotec) 2.5 mg DAILY PO 02/25/17 18:00 02/26/17 11:16 (KCl Powder) 40 meq ONCE ONCE PO 02/26/17 17:00 02/26/17 17:01 . Family History Parents . One son, one daughter alive and well. Substance Use Tobacco: none. Alcohol:none. Prescription med abuse:none. Illicits:none. . Psychosocial History . Lives in [place]. Has 1 son, Duncan and 1 daughter, Miesha. Retired nurse. . Spiritual/Cultural Factors Unknown. Living Will: Never completed Health Care Surrogate: Never completed Durable Power of Call Worker Person: Never completed Health Care Surrogate(s): Patient is incapacitated to make her own health care decisions, will not regain capacity. According to [place] statutes, health care proxy decision making falls to the patients spouse supported by their daughter. . Today's verbally stated goals: Patient is currently incapacitated to make her own health care decisions. . Family/friends goals: Family elects comfort focused care with hospice support. NO CODE. . Ethical and Legal Issues Patient is incapacitated to make her own health care decisions, will not regain capacity. According to [place] statutes, health care proxy decision making falls to the patients spouse supported by their daughter. . Physical Exam Vital Signs Date Time Temp Pulse Resp B/P Pulse Ox O2 Delivery O2 Flow Rate FiO2 02/26/17 12:00 99 Nasal Cannula 2.00 02/26/17 11:22 98 Nasal Cannula 4.00 02/26/17 11:00 99 Nasal Cannula 4.00 02/26/17 11:00 98.4 88 20 121/66 99 02/26/17 11:00 90 02/26/17 10:00 97 Nasal Cannula 4.00 02/26/17 09:30 97.7 02/26/17 09:30 98 Nasal Cannula 5.00 02/26/17 08:48 98 Simple Mask 8.00 02/26/17 08:45 97 Non-Rebreather 8.00 02/26/17 08:23 93.7 114 24 162/97 93 02/26/17 08:23 93 Non-Rebreather 10.00 02/26/17 08:19 100 02/26/17 07:46 100 Non-Rebreather 15.00 02/26/17 07:46 100 15.00 02/26/17 04:00 Room Air 02/26/17 04:00 97.4 112 18 128/82 96 02/26/17 00:00 97.3 54 18 129/76 98 02/25/17 22:00 Room Air 02/25/17 21:38 98 21 02/25/17 20:00 97.2 65 18 117/70 96 02/25/17 20:00 94 02/25/17 02/26/17 19:00 07:00 Intake Total 380 ml 677 ml Balance 380 ml 677 ml Intake Oral 380 ml 240 ml IV Total 437 ml # Voids 4 2 # Bowel Movements 1 1 Exam CONSTITUTIONAL/GENERAL: This is an elderly, frail, thin patient, in no apparent distress. TUBES/LINES/DRAINS: PIV x 2, Arauz. SKIN: No jaundice, rashes, or lesions. Ecchymoses on upper extremities. No wounds seen anteriorly. Skin temperature appropriate. Not diaphoretic. HEAD: Atraumatic. Normocephalic. EYES: Pupils equal and round and reactive. Extraocular motions intact. No scleral icterus. No injection or drainage. Fundi not examined. ENT: Hearing grossly normal. Nose without bleeding or purulent drainage. Throat without visible erythema, exudates, masses, or lesions. NECK: Trachea midline. CARDIOVASCULAR: irregular rhythm, normal rate without murmurs, gallops, or rubs. RESPIRATORY/CHEST: Symmetric, unlabored respirations. Decreased breath sounds bilaterally, scattered rhonchi and crackles. GASTROINTESTINAL: Abdomen soft, non-tender, nondistended. No guarding. Bowel sounds present. GENITOURINARY: Without palpable bladder distension. Arauz catheter in place. MUSCULOSKELETAL: Extremities without clubbing, cyanosis, or edema. LYMPHATICS: No palpable cervical or supraclavicular adenopathy. NEUROLOGICAL: Awake and confused. Moves all extremities. PSYCHIATRIC: confused. . Diagnostic Tests Laboratory Laboratory Tests Test 02/25/17 02/26/17 02/26/17 02/26/17 05:36 07:36 11:24 11:25 Sodium Level 136 MEQ/L 139 MEQ/L (136-145) (136-145) Potassium Level 3.6 MEQ/L 3.2 MEQ/L (3.5-5.1) (3.5-5.1) Chloride Level 101 MEQ/L 98 MEQ/L (98-107) (98-107) Carbon Dioxide Level 24.1 MEQ/L 29.5 MEQ/L (21.0-32.0) (21.0-32.0) Anion Gap 11 MEQ/L (5-15) 12 MEQ/L (5-15) Blood Urea Nitrogen 20 MG/DL (7-18) 20 MG/DL (7-18) Creatinine 0.88 MG/DL 1.24 MG/DL (0.50-1.00) (0.50-1.00) Estimat Glomerular Filtration 61 ML/MIN (>89) 41 ML/MIN (>89) Rate Random Glucose 102 MG/DL 121 MG/DL (74-106) (74-106) Calcium Level 8.1 MG/DL 8.2 MG/DL (8.5-10.1) (8.5-10.1) Blood Gas Puncture Site RT RADIAL Blood Gas Patient Temperature 98.6 Blood Gas HCO3 16 mmol/L (22-26) Blood Gas Base Excess -7.3 mmol/L (-2-2) Blood Gas Oxygen Saturation 98 % (90-100) Arterial Blood pH 7.48 (7.380-7.420) Arterial Blood Partial 21 mmHg (38-42) Pressure CO2 Arterial Blood Partial 186 mmHg Pressure O2 (61-120) Arterial Blood Oxygen Content 18.3 Vol % (12.0-20.0) Arterial Blood 1.1 % (0-4) Carboxyhemoglobin Arterial Blood Methemoglobin 0.6 % (0-2) Blood Gas Hemoglobin 13.1 G/DL (12.0-16.0) Oxygen Delivery Device AEROSOL TX Blood Gas Liter Flow 8 L/M Troponin I LESS THAN 0.02 NG/ML (0.02-0.05) White Blood Count 9.7 TH/MM3 (4.0-11.0) Red Blood Count 4.38 MIL/MM3 (4.00-5.30) Hemoglobin 12.6 GM/DL (11.6-15.3) Hematocrit 39.6 % (35.0-46.0) Mean Corpuscular Volume 90.4 FL (80.0-100.0) Mean Corpuscular Hemoglobin 28.8 PG (27.0-34.0) Mean Corpuscular Hemoglobin 31.9 % Concent (32.0-36.0) Red Cell Distribution Width 15.6 % (11.6-17.2) Platelet Count 320 TH/MM3 (150-450) Mean Platelet Volume 8.0 FL (7.0-11.0) Neutrophils (%) (Auto) 92.5 % (16.0-70.0) Lymphocytes (%) (Auto) 4.3 % (9.0-44.0) Monocytes (%) (Auto) 2.8 % (0.0-8.0) Eosinophils (%) (Auto) 0.1 % (0.0-4.0) Basophils (%) (Auto) 0.3 % (0.0-2.0) Neutrophils # (Auto) 9.0 TH/MM3 (1.8-7.7) Lymphocytes # (Auto) 0.4 TH/MM3 (1.0-4.8) Monocytes # (Auto) 0.3 TH/MM3 (0-0.9) Eosinophils # (Auto) 0.0 TH/MM3 (0-0.4) Basophils # (Auto) 0.0 TH/MM3 (0-0.2) CBC Comment DIFF FINAL Differential Comment Result Diagram: 02/26/17 1125 02/26/17 1124 Microbiology Microbiology Date/Time Procedure Status Source Growth 02/26/17 09:00 Urine Culture Received Urine Catheterized Urine Pending 02/26/17 09:00 Legionella Antigen - Final Complete Urine Catheterized Urine PRESUMPTIVE NEGATIVE FOR LEGIONELLA P... . Imaging Last Impressions Chest X-Ray 02/26/17 0000 Signed Impressions: Service Date/Time: Sunday, February 26, 2017 07:59 - CONCLUSION: 1. Moderate- sized bibasilar opacities representing pleural effusions with associated volume loss and or airspace consolidation. A left pleural effusion has increased in size while the right pleural effusion is stable. 2. Perihilar changes characteristic of pulmonary edema. Johann Mc MD Thoracentesis Ultrasound 02/22/17 0000 Signed Impressions: Service Date/Time: January 13:41 - CONCLUSION: Uncomplicated ultrasound guided thoracentesis. Orville Asencio MD . Procedures * 02/23/17 - thoracentesis Patient/Family Conference Present at Family Conference: Spoke with daughterMiesha via telephone. Family Conference Time (mins): 30 Family Conference Location: Telephone Issues Discussed: * Palliative care role, purpose, approach * Additional medical, psychosocial, and spiritual history * Patients general health, functional status, and cognitive changes in the months leading up to the current hospitalization * Patient/family understanding of the current medical problems * Patient/family understanding of prognosis * Patients goals of care as best understood from advance directives and/or conversations and/or values * Current medical treatment options and benefits/burdens of those options * Likely scenarios comparing ongoing aggressive care with a transition to comfort measures only * Questions answered to the best of my ability * Palliative care contact information provided Assessment and Plan Disease Oriented Problem List: (1) Cardiomyopathy (2) Hypotension (3) Tricuspid regurgitation (4) Mitral regurgitation (5) Congestive heart failure (6) Acute kidney injury Symptom Scale: (1) Pain 0-10 Scale: Unable to quantify (2) Weakness 0-10 Scale: Unable to quantify (3) Dyspnea 0-10 Scale: Unable to quantify Pertinent Non-Medical Issues Psychosocial: . Has one son, Duncan and one daughter, Miesha. Spiritual: Unknown. Legal: Patient is incapacitated to make her own health care decisions, will not regain capacity. According to [place] statutes, health care proxy decision making falls to the patients spouse supported by their daughter. Ethical issues impacting care: No known concerns at this time. . Important Contacts * Johann Parisi, spouse: [phone] * Miesha Parisi, daughter: [phone] PLEASE CALL 1ST, spouse is hard of hearing. . Prognosis Patient has end-stage heart disease with severe ischemic cardiomyopathy, congestive heart failure, hypertension and multiple comorbidities, advanced age and this is her 5th acute-care hospitalization since December 2016. Overall prognosis is poor, cardiology recommends hospice support. . Code Status: No Code Plan * Decision Maker: Patient is incapacitated to make her own health care decisions , will not regain capacity. According to [place] statutes, health care proxy decision making falls to the patients spouse supported by their daughter. * NO CODE * Palliative care spoke with daughter via telephone, she verbalizes after their conversation with Dr. Cortez this morning the family has elected transition to comfort measures with hospice support. * Hospice consulted. [facility] placement. Family requests Hospice admission nurse call her daughter, Miesha at [phone] to arrange meeting with spouse as he is [facility]. * Discussed with Dr. Cortez. * SYMPTOMS: Pain: denies chest pain during my visit. Dyspnea: with exertion. Weakness: due to 5 acute care hospitalization for heart disease, advanced age and commodities. * Palliative care number provided. * Palliative care will continue to follow throughout hospital course to assist with symptom management and clarification of goals as needed. . Thank you for the opportunity to participate in the care of Ms. Parisi. Attestation To help prompt me to consider important information that might be impacting today's encounter and assessment, information from prior notes written by myself or my colleagues may have been "brought forward" into today's note. My signature on this note, however, is an attestation that I personally performed the exam, history, and/or decision-making noted today, and, unless otherwise indicated, the interactions with patient, family, and staff as well as the review of records all occurred today. I also attest that the listed assessment and stated plan reflect my best clinical judgment today based on the combination of historical information, prior notes, and today's exam/ interactions. When time spent is documented, it refers only to time spent today by the signer, or if indicated, combined time spent today by collaborating physician/nurse practitioner. Tiffany Rodney Feb 26, 2017 17:05
[2017-02-26] MEDS ORDERED: POTASSIUM CHLOR 20 MEQ PREMIX 100 ML ONE (17:36)
[2017-02-27] VITALS: BP 138/93; PULSE 94; RESP 19; TEMP 97.5; O2SAT 96
[2017-02-27] MEDS ORDERED: DILTIAZEM HCL 30 MG TAB PO ONE (02:45)
[2017-02-27] MEDS: CHLORHEXIDINE GLUCONATE 2 % 1 PACK (2 CLOTHS) TOP SCH (03:34)
[2017-02-27 04:00] VITALS: BP 161/73; PULSE 141; RESP 18; TEMP 97.8; O2SAT 94
[2017-02-27] MEDS ORDERED: DILTIAZEM 125 MG/NS 100 ML IV SCH ×2 (04:00)
[2017-02-27] MEDS ORDERED: DILTIAZEM HCL 25 MG/5 ML VIAL IV ONE (04:00)
[2017-02-27] MEDS: AZITHROMYCIN INJ 500 MG in SODIUM CHLOR 0.9% 250 ML INJ 250 ML IV SCH (05:23)
--- NOTE | 2017-02-27 07:16 | MB ---
cc: GIOVANNA GOMEZ DATE OF CONSULTATION 02/23/2017 DATE OF [address] Watters REASON FOR CONSULTATION Assist in medical management and acquiring service. HISTORY OF PRESENTING ILLNESS The patient is a pleasant 87-year female with significant past medical history of severe cardiomyopathy and she has been admitted several times since December of 2016 because of an acute CHF. At this time again, the patient was admitted because of acute shortness of breath, found out to have CHF. The patient's BMP was 1100 at the time of admission. The patient was admitted, put on appropriate medication because of congestive heart failure. Cardiology consultation was called in. The patient was seen by the ceo and founder and as per ceo and founder, the patient's overall prognosis is poor. The patient is in the ICU and she was on dopamine and it was weaned off. As per cardiology, it was recommended to consider palliative care and Hospice. The patient had a similar episode of shortness of breath for which the patient was transferred back to the ICU. Her condition was discussed by intensive care unit to the family. Family wants DNR. They were considering palliative care. The patient is in the intensive care unit on nasal cannula offering no complaint. She has no shortness of breath. No chest pain and is feeling better. The patient is alert and oriented. PAST MEDICAL HISTORY 1. Atrial fibrillation 2. Acute congestive heart failure with severe cardiomyopathy and congestive heart disease. 3. Atrial fibrillation MEDICATIONS Medications reviewed, please see EMR. ALLERGIES The patient has NO KNOWN DRUG ALLERGIES. REVIEW OF SYSTEMS As described in the history of present illness for 10 systems. SOCIAL HISTORY The patient does not smoke, drink or do any drugs. She was recently in [facility]. FAMILY HISTORY Noncontributory PHYSICAL EXAMINATION The patient is alert and oriented lying on bed without any apparent distress enjoying her dinner slowly. VITAL SIGNS: The patient is afebrile, pulse is 94, respiratory is 18, blood pressure 140/67, pulse ox of 99% on room air. HEENT: Head is normocephalic. Negative conjunctival icterus. Mouth unremarkable. NECK: Supple. No increased JVD. Central trachea. RESPIRATORY: Some decreased air entry bibasilar. CARDIOVASCULAR: Irregular rhythm. CHEST: Occasional crackles bilaterally. GI: Abdomen soft, no organomegaly. Positive bowel sounds. EXTREMITIES: No cyanosis or clubbing noted. Trace edema at the ankles. CONTINUOUS PILLOWCASE CUTTER: Alert and oriented. Normal facial features. Moving her extremities. SKIN: Warm and dry. PSYCH: Appropriate mood and affect. INVESTIGATION WBC within normal limits, platelet count within normal limits. Potassium 3.2, BUN 20, creatinine 1.24, random glucose 121, troponin less than 0.02. ABG shows pH of 7.48, CO2 of 21, O2 of 186 on . PT on February 22 at 1400 was 1.3. Pleural WBC was on 1287 and RBC was 5141 on February 22. So far, blood cultures are negative x4 days and pleural fluid shows no fundgus, acid-fast bacilli and no growth for 72 hours. Recent chest x-ray today shows moderate sized bibasilar opacities and present pleural effusions with associated volume loss and oriented space consolidation. Left pleural effusion has increased in size while the right pleural effusion is stable. Perihilar change characteristic of pulmonary edema. ASSESSMENT 1. Acute on chronic congestive systolic heart failure. 2. Questionable pneumonia. 3. Mitral regurg 4. Status post acute respiratory failure. 5. Bilateral pleural effusion status post thoracentesis on February 22. 6. Atrial fibrillation 7. Dilated cardiomyopathy within one month with EF range of 25-30%. 8. Severe mitral regurgitation. 9. Severe tricuspid regurgitation. PLAN 1. The patient seen in the intensive care unit. 2. Continue medication as the patient is currently on. 3. report reviewed. 4. Appreciate cardiology consultation and input. 5. Continue on diuretics the patient is on. 6. PPI for GI prophylaxis. 7. SCD's for DVT prophylaxis with heparin twice a day. 8. Appreciate palliative care consult. The patient is DNR. Family is considering hospice. 9. Condition guarded. 10. Overall prognosis poor. 11. Discussed with the patient. 12. Further recommendations to follow as per patient progress. Giovanna Gomez MD JP/MOOKIE /6:14 PM /6:44 AM
[2017-02-27] MEDS ORDERED: DILTIAZEM HCL 30 MG TAB PO SCH (09:00)
[2017-02-27 10:49] VITALS: O2SAT 94
--- NOTE | 2017-02-27 13:51 | EKG ---
Date Performed: 02/26/2017 Time Performed: 07:49:32 PTAGE: 87 years EKG: Atrial flutter. Indeterminate axis Incomplete LBBB Anterolateral infarct - age undetermined Low QRS voltages in limb leads Since previous tracing, no significant change noted Abnormal ECG PREVIOUS TRACING : 02/22/2017 06.22 DOCTOR: Solis Smith Interpretating Date/Time 02/27/2017 13:50:09
--- NOTE | 2017-02-27 18:06 | HHI.DS ---
Discharge Summary Admission Date Feb 22, 2017 at 09:12 Discharge Date: Feb 27, 2017 Admitting Diagnosis chf, pneumonia, hypotension, (1) Sepsis (2) Pneumonia (3) Congestive heart failure (4) Mitral regurgitation (5) Tricuspid regurgitation (6) Hypotension (7) Cardiomyopathy (8) Dyspnea (9) Weakness (10) Pain (11) Acute kidney injury CBC/BMP: 02/26/17 1125 02/26/17 1124 Significant Findings Laboratory Tests Test 02/25/17 02/26/17 02/26/17 02/26/17 05:36 07:36 11:24 11:25 Blood Urea Nitrogen 20 MG/DL (7-18) 20 MG/DL (7-18) Estimat Glomerular Filtration 61 ML/MIN (>89) 41 ML/MIN (>89) Rate Calcium Level 8.1 MG/DL 8.2 MG/DL (8.5-10.1) (8.5-10.1) Blood Gas HCO3 16 mmol/L (22-26) Blood Gas Base Excess -7.3 mmol/L (-2-2) Arterial Blood pH 7.48 (7.380-7.420) Arterial Blood Partial 21 mmHg (38-42) Pressure CO2 Arterial Blood Partial 186 mmHg Pressure O2 (61-120) Potassium Level 3.2 MEQ/L (3.5-5.1) Creatinine 1.24 MG/DL (0.50-1.00) Random Glucose 121 MG/DL (74-106) Troponin I LESS THAN 0.02 NG/ML (0.02-0.05) Mean Corpuscular Hemoglobin 31.9 % Concent (32.0-36.0) Neutrophils (%) (Auto) 92.5 % (16.0-70.0) Lymphocytes (%) (Auto) 4.3 % (9.0-44.0) Neutrophils # (Auto) 9.0 TH/MM3 (1.8-7.7) Lymphocytes # (Auto) 0.4 TH/MM3 (1.0-4.8) Imaging Last Impressions Chest X-Ray 02/26/17 0000 Signed Impressions: Service Date/Time: Sunday, February 26, 2017 07:59 - CONCLUSION: 1. Moderate- sized bibasilar opacities representing pleural effusions with associated volume loss and or airspace consolidation. A left pleural effusion has increased in size while the right pleural effusion is stable. 2. Perihilar changes characteristic of pulmonary edema. Johann Mc MD Thoracentesis Ultrasound 02/22/17 0000 Signed Impressions: Service Date/Time: January 13:41 - CONCLUSION: Uncomplicated ultrasound guided thoracentesis. Orville Asencio MD Hospital Course The patient is a pleasant 87-year female with significant past medical history of severe cardiomyopathy. She had been admitted several times since December of 2016 because of an acute CHF. This time again, the patient was admitted because of acute shortness of breath, found out to have CHF. The patient's BMP was 1100 at the time of admission. The patient was admitted, put on appropriate medication because of congestive heart failure. Cardiology consultation was called in. The patient was seen by the armor officer and as per armor officer, the patient's overall prognosis is poor. The patient was in the ICU and she was on dopamine and this was weaned off. As per cardiology, it was recommended to consider palliative care and Hospice. The patient had a similar episode of shortness of breath for which the patient was transferred back to the ICU. Her condition was discussed by intensive care physician with her family. Family wanted DNR. They were considering palliative care. The patient is in the intensive care unit on nasal cannula offering no complaint. She had no shortness of breath. No chest pain and is feeling better. The patient was alert and oriented. INVESTIGATION WBC within normal limits, platelet count within normal limits. Potassium 3.2, BUN 20, creatinine 1.24, random glucose 121, troponin less than 0.02. ABG shows pH of 7.48, CO2 of 21, O2 of 186 on . PT on February 22 at 1400 was 1.3. Pleural WBC was on 1287 and RBC was 5141 on February 22. So far, blood cultures are negative x4 days and pleural fluid shows no fundgus, acid-fast bacilli and no growth for 72 hours. Recent chest x-ray today shows moderate sized bibasilar opacities and present pleural effusions with associated volume loss and oriented space consolidation. Left pleural effusion has increased in size while the right pleural effusion is stable. Perihilar change characteristic of pulmonary edema. Patient was continued on diuretics. She was put on appropriate DVT and GI prophylaxis Home medications were reviewed and initiated as indicated She was transferred out of ICU Palliative care was consulted and discussed goals of care with family. They requested hospice services Unfortunately, patient before being discharged to hospice services. Pt Condition on Discharge: Deteriorating Esther Aguilar Feb 27, 2017 18:06
== END 2017-02-27 10:35 | disposition expired | DRG 871 ==
LOC: NEPE 05:55 → NEDA 09:12 → HIMN 15:00 → N04B 02-23 17:42 → HCVR 02-26 08:15 → N04A 02-26 19:28
PROVIDERS: ADMIT Anesthesiology; ATTEND Anesthesiology
PROC: 0W9B3ZZ Drainage of Left Pleural Cavity, Percutaneous Approach (ICD-10-PCS; principal; 2017-02-22)
DX: A41.9 Sepsis, unspecified organism (principal); J18.9 Pneumonia, unspecified organism; J96.01 Acute respiratory failure with hypoxia; I50.23 Acute on chronic systolic (congestive) heart failure; J90 Pleural effusion, not elsewhere classified; N17.9 Acute kidney failure, unspecified; I42.0 Dilated cardiomyopathy; I48.91 Unspecified atrial fibrillation; I11.0 Hypertensive heart disease with heart failure; I08.3 Combined rheumatic disorders of mitral, aortic and tricuspid valves; Z79.82 Long term (current) use of aspirin; Z66 Do not resuscitate; I25.5 Ischemic cardiomyopathy; E03.9 Hypothyroidism, unspecified; E78.5 Hyperlipidemia, unspecified; Z51.5 Encounter for palliative care
CPT/HCPCS: 32555; 36600; 71010; 80048; 80053; 82150; 82550; 82805; 82945; 83605; 83615; 83735; 83880; 83986; 84100; 84157; 84484; 85025; 85610; 85730; 87015; 87040; 87070; 87086; 87102; 87116; 87205; 87206; 87449; 87641; 88112; 88305; 89051; 93005; 93306; 94640; 94664; 96365; 96366; 96375; C1729; C9113; J0456; J0692; J1265; J1644; J1940; J2405; J2543; J2930; J3480; J7030; J7050; J7613